=== PATIENT | female | born 1960 | race Caucasian/White ===

== ENCOUNTER 2016-04-30 13:31 | Inpatient (IN) | payer BC, OTHER ==
[2016-04-30] MEDS ORDERED: SODIUM CHLORIDE 0.9% 1,000 ML IV ONE (14:52)
[2016-04-30] MEDS ORDERED: ASPIRIN 325 MG TAB PO STA (14:53)
[2016-04-30 15:21] LABS: Basophils # (A) 0.1 k/uL (0-0.2); Basophils % (A) 1 %; CH 30.9; CHCM 34.6; Eosinophils # (A) 0.3 k/uL (0-0.7); Eosinophils % (A) 4 %; HCT 41.8 % (34.0-46.0); HDW 2.85; HGB 14.4 gm/dL (11.4-16.0); Luc # (Auto) 0.16; Luc % (Auto) 3; Lymphocytes # (A) 1.5 k/uL (1.0-4.8); Lymphocytes % (A) 23 %; MCHC 34.5 g/dL (31.0-37.0); MCV 89.7 fL (80.0-100.0); Mean Platelet Volume 7.4; Monocytes # (A) 0.3 k/uL (0-1.0); Monocytes % (A) 5 %; Neutrophils # (A) 4.3 k/uL (1.3-7.7); Neutrophils % (A) 65 %; RBC 4.65 m/uL (3.80-5.40); RDW 13.1 % (11.5-15.5); WBC 6.6 k/uL (3.8-10.6); WBC (Perox) 6.63
[2016-04-30 15:30] LABS: Partial Thromboplastin Time 23.5 sec (22.0-30.0); Prothrombin Time 10.4 sec (9.0-12.0)
[2016-04-30 15:31] LABS: Anion Gap 9 mmol/L; Blood Urea Nitrogen 10 mg/dL (7-17); Calcium 9.3 mg/dL (8.4-10.2); Carbon Dioxide 28 mmol/L (22-30); Chloride 106 mmol/L (98-107); Glucose 95 mg/dL (74-99); Non-African American GFR(MDRD) >60 (>60 ml/min/1.73 sqM); Potassium 3.6 mmol/L (3.5-5.1); Sodium 143 mmol/L (137-145)
--- NOTE | 2016-04-30 15:59 | XR ---
EXAMINATION TYPE: XR chest 2V DATE OF EXAM: 04/30/2016 3:48 PM COMPARISON: NONE HISTORY: Leg swelling. TECHNIQUE: Frontal and lateral views of the chest are obtained. FINDINGS: Heart and mediastinum are within normal limits. Lungs are clear. Costophrenic angles are c lear. There are no hilar masses. Bony thorax appears intact. IMPRESSION: No active cardiopulmonary disease.
[2016-04-30] MEDS ORDERED: NALOXONE 0.4 MG/ML 1 ML VIAL IV PRN (16:02)
[2016-04-30] MEDS ORDERED: MORPHINE SULFATE 4 MG/ML SYRINGE IV PRN (16:02)
[2016-04-30] MEDS ORDERED: ACETAMINOPHEN TAB 325 MG TAB PO PRN (16:02)
[2016-04-30] MEDS ORDERED: ONDANSETRON 4 MG/2 ML VIAL IVP PRN (16:02)
--- NOTE | 2016-04-30 16:06 | ED ---
General Adult HPI - General Chief complaint: Skin/Abscess/Foreign Body Stated complaint: Cellulitis Time Seen by Provider: 04/30/16 14:31 Source: patient Mode of arrival: ambulatory Limitations: no limitations - History of Present Illness Initial comments: 56-year-old female presented for evaluation of failed outpatient treatment of cellulitis of her left lower extremity. She states that she has gone through 2 courses of antibiotics the first with cefuroxime and the second with clindamycin. She states the cellulitis has been continuing to spread towards her knees slowly overnight the swelling and erythema rapidly spread beyond her knee and went chcf up her thigh. She called her primary care physician who has been treating her for the cellulitis and he stated that she needed to come to the hospital for admission and IV antibiotics. She denies any lower extremity numbness, tingling, paresthesias, discoloration with the exception of the cellulitis areas. She further denies any fevers, chills, nausea, vomiting, shortness breath, chest pain. - Related Data Home Medications Medication Instructions Recorded Confirmed Cetirizine HCl [Zyrtec] 10 mg PO DAILY 04/30/16 04/30/16 Clindamycin HCl [Cleocin] 300 mg PO Q6HR 04/30/16 04/30/16 Furosemide [Lasix] 20 mg PO DAILY 04/30/16 04/30/16 Naproxen Sodium [Aleve] 220 mg PO Q12HR 04/30/16 04/30/16 Pantoprazole [Protonix] 40 mg PO DAILY 04/30/16 04/30/16 Simvastatin [Zocor] 20 mg PO DAILY 04/30/16 04/30/16 Terbinafine [LamISIL] 250 mg PO DAILY 04/30/16 04/30/16 Allergies Allergy/AdvReac Type Severity Reaction Status Date / Time Iodinated Contrast Media - Allergy Dyspnea Verified 04/30/16 14:59 Oral and [Iodinated Contrast Media - IV Dye] Review of Systems ROS Statement: Those systems with pertinent positive or pertinent negative responses have been documented in the HPI. ROS Other: All systems not noted in ROS Statement are negative. Constitutional: Denies: fever, chills Eyes: Denies: eye pain, eye discharge ENT: Denies: ear pain, throat pain Respiratory: Denies: cough, dyspnea, wheezes Cardiovascular: Denies: chest pain, palpitations, dyspnea on exertion, orthopnea Endocrine: Denies: fatigue, polydipsia, polyuria Gastrointestinal: Denies: abdominal pain, nausea, vomiting Genitourinary: Denies: urgency, dysuria Musculoskeletal: Denies: back pain, myalgia Skin: Reports: lesions, other (Cellulitis of left lower extremity extending from the lower mid calf up to the mid thigh along the medial aspect of her leg.) Neurological: Denies: headache, weakness Psychiatric: Denies: anxiety, depression Past Medical History Past Medical History: GERD/Reflux Additional Past Medical History / Comment(s): edema History of Any Multi-Drug Resistant Organisms: None Reported Past Surgical History: Hysterectomy Past Psychological History: No Psychological Hx Reported Smoking Status: Former smoker Past Alcohol Use History: None Reported Past Drug Use History: None Reported - Past Family History Father Family Medical History: No Reported History Mother Family Medical History: Cancer General Exam Limitations: no limitations General appearance: alert, in no apparent distress Head exam: Present: atraumatic, normocephalic, normal inspection Eye exam: Present: normal appearance, PERRL, EOMI. Absent: scleral icterus, conjunctival injection, periorbital swelling ENT exam: Present: normal exam, mucous membranes moist Neck exam: Present: normal inspection. Absent: tenderness, meningismus, lymphadenopathy Respiratory exam: Present: normal lung sounds bilaterally. Absent: respiratory distress, wheezes, rales, rhonchi, stridor Cardiovascular Exam: Present: regular rate, normal rhythm, normal heart sounds. Absent: systolic murmur, diastolic murmur, rubs, gallop, clicks GI/Abdominal exam: Present: soft, normal bowel sounds. Absent: distended, tenderness, guarding, rebound, rigid Rectal exam: Present: deferred Extremities exam: Present: normal inspection, full ROM, normal capillary refill. Absent: tenderness, pedal edema, joint swelling, calf tenderness Back exam: Present: normal inspection Neurological exam: Present: alert, oriented X3, CN II-XII intact Psychiatric exam: Present: normal affect, normal mood Skin exam: Present: warm, dry, intact, erythema (Cellulitis to the left lower extremity extending from the lower half of her calf up the medial aspect of her leg to mid thigh. There are multiple areas of induration and it is warm to palpation.). Absent: normal color, rash Course Vital Signs 04/30/16 04/30/16 13:47 16:08 Temperature 98.8 F 99.4 F Pulse Rate 100 86 Respiratory 20 16 Rate Blood Pressure 142/66 134/74 O2 Sat by Pulse 98 94 L Oximetry EKG Findings - EKG Comments: EKG Findings:: Normal sinus rhythm with a ventricular rate of 92, SHAYLA 152, QRS 80, QT/QTc is 378/467. Medical Decision Making - Medical Decision Making 56-year-old female presenting for evaluation of saddle treatment of lower extremity cellulitis. She's been treated with 2 antibiotics prior to coming to the ED. She called her primary care physician today and he recommended she come for further evaluation, admission, and IV antibiotics. On physical examination she does have erythema, induration, and warmth to palpation along the medial aspect of her leg and wraps around anterior and posterior extending from the distal calf all the way to the mid thigh. She states that the majority of this extension happened overnight despite being on antibiotic therapy. Although this is likely failed outpatient treatment of cellulitis concern for DVT remains on the differential. We'll obtain labs, lower extremity duplex, and provide IV fluids and vancomycin anabiotic therapy. Labs revealed no significant abnormalities.Ultrasound venous Doppler duplex of the left lower extremity: No evidence of DVT. There is evidence of some thrombus in the small saphenous vein and superficial other veins. The patient was reevaluated and was resting currently in her bed. She was informed of these results and through shared decision-making it was decided that she would be admitted for further evaluation and treatment. The primary team was contacted and informed of admission and agreed with request for consult with infectious disease. Admission order placed in bed request submitted. - Lab Data Result diagrams: 04/30/16 15:05 04/30/16 15:05 Lab Results 04/30/16 04/30/16 04/30/16 Range/Units 15:05 15:05 15:05 WBC 6.6 (3.8-10.6) k/uL RBC 4.65 (3.80-5.40) m/uL Hgb 14.4 (11.4-16.0) gm/dL Hct 41.8 (34.0-46.0) % MCV 89.7 (80.0-100.0) fL MCH 31.0 (25.0-35.0) pg MCHC 34.5 (31.0-37.0) g/dL RDW 13.1 (11.5-15.5) % Plt Count 289 (150-450) k/uL Neutrophils % 65 % Lymphocytes % 23 % Monocytes % 5 % Eosinophils % 4 % Basophils % 1 % Neutrophils # 4.3 (1.3-7.7) k/uL Lymphocytes # 1.5 (1.0-4.8) k/uL Monocytes # 0.3 (0-1.0) k/uL Eosinophils # 0.3 (0-0.7) k/uL Basophils # 0.1 (0-0.2) k/uL PT 10.4 (9.0-12.0) sec INR 1.0 (<1.1) APTT 23.5 (22.0-30.0) sec Sodium 143 (137-145) mmol/L Potassium 3.6 (3.5-5.1) mmol/L Chloride 106 (98-107) mmol/L Carbon Dioxide 28 (22-30) mmol/L Anion Gap 9 mmol/L BUN 10 (7-17) mg/dL Creatinine 0.60 (0.52-1.04) mg/dL Est GFR (MDRD) Af Amer >60 (>60 ml/min/1.73 sqM) Est GFR (MDRD) Non-Af >60 (>60 ml/min/1.73 sqM) Glucose 95 (74-99) mg/dL Calcium 9.3 (8.4-10.2) mg/dL Troponin I (0.000-0.034) ng/mL 04/30/16 Range/Units 15:05 WBC (3.8-10.6) k/uL RBC (3.80-5.40) m/uL Hgb (11.4-16.0) gm/dL Hct (34.0-46.0) % MCV (80.0-100.0) fL MCH (25.0-35.0) pg MCHC (31.0-37.0) g/dL RDW (11.5-15.5) % Plt Count (150-450) k/uL Neutrophils % % Lymphocytes % % Monocytes % % Eosinophils % % Basophils % % Neutrophils # (1.3-7.7) k/uL Lymphocytes # (1.0-4.8) k/uL Monocytes # (0-1.0) k/uL Eosinophils # (0-0.7) k/uL Basophils # (0-0.2) k/uL PT (9.0-12.0) sec INR (<1.1) APTT (22.0-30.0) sec Sodium (137-145) mmol/L Potassium (3.5-5.1) mmol/L Chloride (98-107) mmol/L Carbon Dioxide (22-30) mmol/L Anion Gap mmol/L BUN (7-17) mg/dL Creatinine (0.52-1.04) mg/dL Est GFR (MDRD) Af Amer (>60 ml/min/1.73 sqM) Est GFR (MDRD) Non-Af (>60 ml/min/1.73 sqM) Glucose (74-99) mg/dL Calcium (8.4-10.2) mg/dL Troponin I <0.012 (0.000-0.034) ng/mL Disposition Clinical Impression: Cellulitis and abscess of leg Disposition: ADMITTED IP TO THIS [facility] Decision to Admit Reason: Admit from EC Decision Date: 04/30/16 Decision Time: 16:06
[2016-04-30] MEDS ORDERED: IV VANCOMYCIN PER PHARMACY 1 EACH MISC MISCELLANE PRN (16:29)
[2016-04-30] MEDS ORDERED: VANCOMYCIN 1,750 MG in SODIUM CHLORIDE 0.9% 250 ML IVPB ONE (16:45)
[2016-04-30 16:58] LABS: Appearance,Urine Clear (Clear); Bilirubin,Urine Negative (Negative); Glucose,Urine (UA) Negative (Negative); Ketones,Urine Negative (Negative); Leukocyte Esterase,Urine Negative (Negative); Mucus,Urine Rare /hpf; Nitrite,Urine Negative (Negative); Particle Count 772; Protein,Urine Negative (Negative); RBC,Urine 1 /hpf (0-5); Specific Gravity,Urine 1.006 (1.001-1.035); Squamous Epithelial Cell,Urine 1 /hpf (0-4); UA Billing (MACRO vs. MICRO) MICRO; Urobilinogen,Urine <2.0 mg/dL (<2.0); WBC,Urine <1 /hpf (0-5)
--- NOTE | 2016-04-30 17:07 | US ---
EXAMINATION TYPE: US venous doppler duplex LE LT DATE OF EXAM: 04/30/2016 4:33 PM COMPARISON: No previous CLINICAL HISTORY: Pain. Cellulitis SIDE PERFORMED: Left VESSELS IMAGED: External Iliac Vein (EIV) Common Femoral Vein Deep Femoral Vein Greater Saphenous Vein * Femoral Vein Popliteal Vein Small Saphenous Vein * Proximal Calf Veins (* superficial vessels) Left Leg: Appears negative for DVT (unable to do compression images at mid and distal femoral vein a nd popliteal vein, transducer pressure at those areas was too painful for patient), thrombus seen wit hin small saphenous vein, scanned left calf area of pain: thrombus seen within superficial vessel IMPRESSION: No evidence of deep venous thrombosis. There is evidence of some thrombus in the sapheno us vein and superficial other veins.
[2016-04-30] MEDS: SODIUM CHLORIDE 0.9% 1,000 ML IV SCH (17:53)
[2016-04-30 18:00] VITALS: BMI 38.7
[2016-04-30] MEDS: KETOROLAC 30 MG/ML 1 ML VIAL IVP PRN (20:12)
[2016-05-01] MEDS: HEPARIN SODIUM,PORCINE 5,000 UNIT/ML 1 ML VIAL SQ SCH ×4 (00:24→23:35)
[2016-05-01] MEDS: KETOROLAC 30 MG/ML 1 ML VIAL IVP PRN ×3 (02:07→15:08)
[2016-05-01] MEDS ORDERED: VANCOMYCIN 1,750 MG in SODIUM CHLORIDE 0.9% 250 ML IVPB SCH (06:00)
[2016-05-01] MEDS: ATORVASTATIN 10 MG TAB PO SCH (07:49)
[2016-05-01] MEDS: PANTOPRAZOLE 40 MG TABLET PO SCH (07:49)
[2016-05-01] MEDS: TERBINAFINE 250 MG TAB PO SCH (07:49)
[2016-05-01] MEDS: FUROSEMIDE 20 MG TAB PO SCH (07:50)
[2016-05-01 07:57] LABS: Basophils # (A) 0.1 k/uL (0-0.2); Basophils % (A) 1 %; CH 30.4; CHCM 33.7; Eosinophils # (A) 0.2 k/uL (0-0.7); Eosinophils % (A) 5 %; HCT 39.1 % (34.0-46.0); HDW 2.92; Luc # (Auto) 0.12; Luc % (Auto) 3; Lymphocytes # (A) 1.3 k/uL (1.0-4.8); Lymphocytes % (A) 28 %; MCH 30.2 pg (25.0-35.0); MCHC 33.3 g/dL (31.0-37.0); MCV 90.7 fL (80.0-100.0); Mean Platelet Volume 7.1; Monocytes # (A) 0.3 k/uL (0-1.0); Monocytes % (A) 6 %; Neutrophils # (A) 2.6 k/uL (1.3-7.7); Neutrophils % (A) 58 %; RBC 4.32 m/uL (3.80-5.40); RDW 13.3 % (11.5-15.5); WBC 4.5 k/uL (3.8-10.6); WBC (Perox) 4.89
[2016-05-01 08:02] LABS: Anion Gap 9 mmol/L; Blood Urea Nitrogen 10 mg/dL (7-17); Calcium 8.9 mg/dL (8.4-10.2); Carbon Dioxide 22 mmol/L (22-30); Chloride 110 mmol/L (98-107); Glucose 96 mg/dL (74-99); Non-African American GFR(MDRD) >60 (>60 ml/min/1.73 sqM); Potassium 4.1 mmol/L (3.5-5.1); Sodium 141 mmol/L (137-145)
--- NOTE | 2016-05-01 08:04 | P.HPIM ---
History of Present Illness H&P Date: 05/01/16 Chief Complaint: LLE cellulitis This is a history and physical on a 56-year-old white female who has essentially failed outpatient treatment for left lower stomach cellulitis. She was given cellulitis treatment of Levaquin and Rocephin and then [facility] practitioner who switched antibiotics and still the patient did not improve. She was taking Aleve every 12 hours when necessary for fever. However, she states that the leg still became red and because of her lack of mobility it started swelling at work. DVT has been ruled out by lower extremity Doppler. But she has significant saphenous thrombophlebitis. Otherwise, she has an underlying history of hypertension which is stable. Review of Systems Constitutional: Reports chills, Reports fever Eyes: denies blurred vision, denies pain Ears, nose, mouth and throat: Denies headache, Denies sore throat Cardiovascular: Denies chest pain, Denies shortness of breath Respiratory: Denies cough Genitourinary: Denies dysuria, Denies hematuria Integumentary: Reports rash Neurological: Denies numbness, Denies weakness Psychiatric: Denies anxiety, Denies depression Endocrine: Denies fatigue, Denies weight change Past Medical History Past Medical History: GERD/Reflux Additional Past Medical History / Comment(s): edema History of Any Multi-Drug Resistant Organisms: None Reported Past Surgical History: Hysterectomy Past Psychological History: No Psychological Hx Reported Smoking Status: Former smoker Past Alcohol Use History: None Reported Past Drug Use History: None Reported - Past Family History Father Family Medical History: No Reported History Mother Family Medical History: Cancer Medications and Allergies Home Medications Medication Instructions Recorded Confirmed Type Cetirizine HCl [Zyrtec] 10 mg PO DAILY 04/30/16 04/30/16 History Clindamycin HCl [Cleocin] 300 mg PO Q6HR 04/30/16 04/30/16 History Furosemide [Lasix] 20 mg PO DAILY 04/30/16 04/30/16 History Naproxen Sodium [Aleve] 220 mg PO Q12HR 04/30/16 04/30/16 History Pantoprazole [Protonix] 40 mg PO DAILY 04/30/16 04/30/16 History Simvastatin [Zocor] 20 mg PO DAILY 04/30/16 04/30/16 History Terbinafine [LamISIL] 250 mg PO DAILY 04/30/16 04/30/16 History Allergies Allergy/AdvReac Type Severity Reaction Status Date / Time Iodinated Contrast Media - Allergy Dyspnea Verified 04/30/16 14:59 Oral and [Iodinated Contrast Media - IV Dye] Physical Exam Vitals: Vital Signs Temp Pulse Pulse Pulse Resp BP BP 05/01/16 01:30 97.4 F L 84 16 105/60 04/30/16 20:00 98.2 F 94 16 116/58 04/30/16 16:08 99.4 F 86 16 134/74 Pulse Ox 05/01/16 01:30 95 04/30/16 20:00 92 L 04/30/16 16:08 94 L Intake and Output 04/30/16 05/01/16 05/01/16 22:59 06:59 14:59 Intake Total 261 150 Balance 261 150 Intake: Oral 261 150 Other: Voiding Method Toilet # Voids 1 2 Weight 108.862 kg - Constitutional General appearance: obese - EENT Eyes: EOMI - Neck Neck: no lymphadenopathy - Respiratory Respiratory: bilateral: CTA - Cardiovascular Rhythm: regular Heart sounds: normal: S1, S2 - Gastrointestinal General gastrointestinal: soft, no tenderness - Integumentary Integumentary: cellulitis - Neurologic Neurologic: CNII-XII intact - Psychiatric Psychiatric: A&O x's 3 Results CBC & Chem 7: 04/30/16 15:05 04/30/16 15:05 Labs: Abnormal Lab Results - Last 24 Hours (Table) 04/30/16 Range/Units 16:43 Urine Blood Trace H (Negative) Urine Mucus Rare H (None) /hpf Thrombosis Risk Factor Assmnt - Choose All That Apply Each Factor Represents 1 point: Age 41-60 years Thrombosis Risk Factor Assessment Total Risk Factor Score: 1 Thrombosis Risk Factor Assessment Level: Low Risk Assessment and Plan (1) Cellulitis and abscess of leg Status: Acute Plan: We'll go ahead and continue vancomycin. The patient will be on bedrest. Question need for Silvadene cream. Check CBC and BMP in a.m. Anticipate discharge in next 48 hours. I would like to see about 72 hours of vancomycin and then switch back to oral medication. Reconcile home medications. Otherwise, discussed with patient's is full code. Time with Patient: Less than 30
--- NOTE | 2016-05-01 10:35 | HP ---
DATE OF ADMISSION: 04/30/2016. CHIEF COMPLAINT: Left leg cellulitis, worsening. HISTORY OF PRESENT ILLNESS: Ms. Frias is a 56-year-old woman with a known history of hypertension, hyperlipidemia, GERD, and toenail fungal infection, who follows with Dr. Maria. Came to the hospital with worsening leg cellulitis of the left leg. Apparently the patient had cellulitis starting in the ankle region, went up to the knee. The patient went to Dr. Maria's office and was initially started on antibiotics and has been changed to clindamycin yesterday. The patient took the medication but the swelling and redness did not get any better and was extending up to the thigh area now. The patient presented to the hospital for further evaluation. The patient has been taking clindamycin. The patient otherwise denied any subjective fevers. The patient did have chills at home. No chest pain or shortness of breath. No leg weakness. No numbness or tingling. No blisters noted. REVIEW OF SYSTEMS: CONSTITUTIONAL: No fever. No chills. Patient does have subjective fevers and chills at home. No weakness. ABDOMEN: No nausea, vomiting or abdominal pain. CARDIOVASCULAR: No chest pain or shortness of breath. RESPIRATORY: No cough or sputum production. No shortness of breath. GENITOURINARY: Negative. SKIN: Negative except as above. All other fourteen-point review of systems negative except as above. PAST MEDICAL HISTORY: GERD, hypertension, hyperlipidemia, toenail fungal infection. PAST SURGICAL HISTORY: Hysterectomy. SOCIAL HISTORY: The patient is a former smoker, quit smoking several years ago. Denied any alcohol use, denied any drugs or IVDU. Allergies include IODINATED CONTRAST MEDIA and DYE. HOME MEDICATIONS: 1. Cetirizine. 2. Clindamycin. 3. Lasix. 4. Naprosyn. 5. Protonix. 6. Simvastatin. 7. Acetaminophen. FAMILY HISTORY: Denied any history of hypertension, diabetes mellitus or premature heart disease in the family. PHYSICAL EXAMINATION: GENERAL: A 56-year-old female, lying in bed comfortably, awake, alert, oriented x3. The patient is in no apparent distress. VITALS: Blood pressure is 148/66, pulse 100, respirations 20, temperature afebrile, pulse ox is 98% on room air. HEENT: Atraumatic, normocephalic. NECK: Supple. No JVD. CVS: S1, S2 heard. No murmurs, no gallop. LUNGS: Bilateral air entry is present. No wheezing, no gallops. ABDOMEN: Soft, nontender, bowel sounds present. OVEN TECHNICIAN: Awake, alert, oriented x3. EXTREMITIES: Left lower extremity redness extending up to the thigh area from knee with indurated area on the medial aspect. Tender to palpation. The patient's has an ulcer on the leg, also warm as well. Pulses palpable bilaterally. No clubbing or cyanosis. PSYCHIATRIC: Cooperative. LABORATORY DATA: WBC 6.6, hemoglobin 14.4, platelets 289, INR 1.0, sodium 143, potassium 3.6, ( ), bicarbonate 28, BUN 10, creatinine 0.6. Troponin less than 0.012. UA negative. Chest x-ray, no acute pulmonary process. Venous duplex, no evidence of DVT. There is evidence of thrombus in the saphenous vein and superficial other veins. IMPRESSION: 1. Left lower extremity cellulitis, failed outpatient therapy. 2. Left lower extremity superficial vein thrombus. No deep venous thrombosis noted on the ultrasound. 3. History of leg swelling, patient is on Lasix for that. 4. Hyperlipidemia. 5. Fungal toenail infection, currently on clindamycin. 6. Gastroesophageal reflux disease. 7. Morbid obesity with body mass index of 38.7. 8. Deep venous thrombosis prophylaxis with heparin subcu. DISCUSSION AND PLAN: Hospital is admitted to the hospital with cellulitis, failed outpatient therapy. We will start the patient on vancomycin. Duplex ultrasound showed no deep venous thrombosis. We will continue the warm compresses. Continue the pain management. Continue home medications. Further recommendations based on clinical course.
[2016-05-01] MEDS: ceFAZolin 2 GM in SODIUM CHLORIDE 0.9% 100 ML IVPB SCH ×2 (15:08→23:34)
[2016-05-01] MEDS: SODIUM CHLORIDE 0.9% 1,000 ML IV SCH (15:16)
--- NOTE | 2016-05-01 17:02 | CONS ---
DATE OF CONSULTATION: 05/01/2016 REASON FOR CONSULTATION: Left lower extremity cellulitis. HISTORY OF PRESENT ILLNESS: The patient is a 56-year-old female presenting to the ER at [facility] with chief complaints of left leg pain, swelling and redness that apparently have been going on since April 13. She did have some swelling and redness about the ankle area that has progressively increased up to the upper leg and to the posterior knee in the popliteal fossa area. Patient has been treated as an outpatient with oral antibiotic therapy in form of clindamycin, without any significant improvement, especially with the pain. Pain is currently throbbing, 5 to 6 out of 10, and no radiation. There is no skin breakdown. There is no drainage. She did have some chills but denies any high-grade fever. With these symptoms patient did present to the ER. Patient was evaluated by the ER physician. She did have a lower extremity Doppler that was positive for some superficial vein thrombosis but no DVT. She was started on vancomycin, Pharmacy to dose, and I was asked to see the patient for further recommendations regarding antibiotic therapy. At the time of my evaluation, I was unable to appreciate any significant redness, though there was some swelling. REVIEW OF SYSTEMS: CONSTITUTIONAL: Positive for weakness and chills. EYES: No complaint. ENT: No complaint. RESPIRATORY: No complaint. CARDIOVASCULAR: No complaint. GENITOURINARY: No complaint. GASTROINTESTINAL: No complaint. MUSCULOSKELETAL: No complaint. INTEGUMENTARY: As per HPI. PSYCHOLOGICAL: No complaint. ENDOCRINE: No complaint. NEUROLOGIC: No complaint. PAST MEDICAL HISTORY: 1. Hypertension. 2. Hyperlipidemia. 3. Onychomycosis. 4. Gastroesophageal reflux disease. PAST SURGICAL HISTORY: Hysterectomy. SOCIAL HISTORY: Patient quit smoking a few years ago. Denies any drinking or any drug use. FAMILY HISTORY: No pertinent findings were noticed. ALLERGIES: IODINATED CONTRAST DYE. Medications currently include: 1. Tylenol. 2. Lipitor. 3. Vancomycin, Pharmacy to dose. 4. Lasix. 5. Heparin. 6. Motrin. 7. Toradol. 8. Narcan. 9. Zofran. 10. Protonix. 11. Lamictal. On examination, blood pressure is 148/63 with a pulse of 76, temperature 98.6. She is 95% on room air. General description is a middle-aged female up in the room in no distress. No tachypnea or accessory muscle of respiration use. HEENT examination shows no pallor or scleral icterus. Oral mucous membranes dry. NECK: Trachea is central. There is no thyromegaly. LUNGS: Unlabored breathing. Clear to auscultation anteriorly. No wheeze or crackle. HEART: S1, S2. Regular rate and rhythm. ABDOMEN: Soft. No tenderness. LEFT LEG: Some swelling and varicose veins noticed, slight swelling but no significant warmth was noticed or any fluctuation or induration. NEUROLOGICAL: The patient is awake, alert, oriented x3. Mood and affect normal. LABS: Hemoglobin is 13 with a white count of 4.5. BUN of 10, creatinine 0.52. Urine has been negative. DIAGNOSTIC IMPRESSION AND PLAN: Patient with left leg swelling and pain, more likely secondary to superficial thrombophlebitis. Clinical suspicion remains to be low for underlying secondary bacterial cellulitis, as the patient is not running any fever and did not have an elevated white count. Would recommend concentration and treatment more on the superficial thrombophlebitis rather than bacterial infection. Clinical suspicion is low for an MRSA infection. PLAN: 1. Discontinue the vancomycin. 2. Will advise a non-steroid anti-inflammatory medication and possible cold compresses to the area. 3. Will give her a short course of cefazolin. 4. Will follow up on the clinical condition to further adjust medication if needed. Thank you for this consultation. Will follow this patient along with you. WILIAM
[2016-05-01] MEDS: IBUPROFEN 400 MG TAB PO PRN (22:03)
[2016-05-02] MEDS ORDERED: VANCOMYCIN TROUGH DUE 1 EACH MISC MISCELLANE ONE (05:00)
[2016-05-02] MEDS: IBUPROFEN 400 MG TAB PO PRN ×3 (05:31→20:28)
[2016-05-02 05:40] LABS: CH 30.7; CHCM 34.3; HCT 40.5 % (34.0-46.0); HDW 2.82; HGB 13.7 gm/dL (11.4-16.0); MCH 30.5 pg (25.0-35.0); MCHC 33.9 g/dL (31.0-37.0); MCV 89.8 fL (80.0-100.0); Mean Platelet Volume 6.9; RBC 4.51 m/uL (3.80-5.40); RDW 13.2 % (11.5-15.5); WBC 4.9 k/uL (3.8-10.6)
[2016-05-02 05:52] LABS: ALT 34 U/L (9-52); AST 22 U/L (14-36); Alkaline Phosphatase 89 U/L (38-126); Anion Gap 3 mmol/L; Blood Urea Nitrogen 10 mg/dL (7-17); Calcium 9.1 mg/dL (8.4-10.2); Carbon Dioxide 28 mmol/L (22-30); Chloride 108 mmol/L (98-107); Glucose 92 mg/dL (74-99); Non-African American GFR(MDRD) >60 (>60 ml/min/1.73 sqM); Potassium 4.1 mmol/L (3.5-5.1); Sodium 139 mmol/L (137-145); Total Bilirubin 0.3 mg/dL (0.2-1.3); Total Protein 6.1 g/dL (6.3-8.2)
[2016-05-02] MEDS: PANTOPRAZOLE 40 MG TABLET PO SCH (09:12)
[2016-05-02] MEDS: HEPARIN SODIUM,PORCINE 5,000 UNIT/ML 1 ML VIAL SQ SCH ×2 (09:12→15:27)
[2016-05-02] MEDS: FUROSEMIDE 20 MG TAB PO SCH (09:12)
[2016-05-02] MEDS: TERBINAFINE 250 MG TAB PO SCH (09:12)
[2016-05-02] MEDS: ceFAZolin 2 GM in SODIUM CHLORIDE 0.9% 100 ML IVPB SCH ×2 (09:13→15:27)
[2016-05-02] MEDS: ATORVASTATIN 10 MG TAB PO SCH (09:14)
[2016-05-02] MEDS: SODIUM CHLORIDE 0.9% 1,000 ML IV SCH (16:12)
--- NOTE | 2016-05-02 20:17 | P.PN ---
Subjective Principal diagnosis: Lower extremity cellulitis. This is a continue progress on a 56-year-old white female essentially admitted for cellulitis. She isn't placed on vancomycin. Infectious disease has been counseled. She states significant clinical improvement. No significant fever spikes are noted. I appreciate infectious disease input. Objective - Vital Signs Vital signs: Vital Signs Temp 96.0 F L 05/02/16 14:49 Pulse 85 05/02/16 14:49 Resp 17 05/02/16 14:49 BP 123/82 05/02/16 14:49 Pulse Ox 96 05/02/16 14:49 Intake & Output 05/02/16 05/02/16 05/03/16 06:59 18:59 06:59 Intake Total 180 2000 Balance 180 1999 Intake: IV 180 100 Sodium Chloride 0.9% 1, 180 100 000 ml @ 20 mls/hr IV . Q24H NITHIN Rx#:[id number] Intake, IV Titration 100 Amount ceFAZolin 2 gm In Sodium 100 Chloride 0.9% 100 ml @ 100 mls/hr IVPB Q8HR NTIHIN Rx#:[id number] Oral 1800 Other: Voiding Method Toilet Toilet # Voids 2 2 - Constitutional General appearance: Present: obese - EENT Eyes: Absent: abnormal pupil - Respiratory Respiratory: bilateral: CTA - Cardiovascular Heart sounds: normal: S1, S2 - Gastrointestinal General gastrointestinal: Absent: tenderness - Neurologic Neurologic: Present: CNII-XII intact - Labs CBC & Chem 7: 05/02/16 05:24 05/02/16 05:24 Labs: Abnormal Lab Results - Last 24 Hours (Table) 05/02/16 Range/Units 05:24 Chloride 108 H (98-107) mmol/L Total Protein 6.1 L (6.3-8.2) g/dL Assessment and Plan (1) Cellulitis and abscess of leg Status: Acute Plan: Continue current treatment. Check CBC in a.m. Anticipate discharge in the next 24-48 hours. Time with Patient: Greater than 30
--- NOTE | 2016-05-02 22:48 | PN ---
DATE OF SERVICE: 05/02/2016 Reason for Follow-up is left lower extremity cellulitis. INTERVAL HISTORY: The patient for afebrile. She is complaining of some pain on the popliteal fossa and the left medial leg area, there is some swelling but no redness. the patient does have evidence of varicose veins in both leg. Denies any chest pain, shortness of breath, cough. No abdominal pain. No diarrhea. On examination, blood pressure 123/82 with a pulse of 85. Temperature 96, she is 96% on room air. HEENT: The patient is a middle-age female up in the room in no distress. RESPIRATORY SYSTEM: Unlabored breathing. Clear to auscultation anteriorly. HEART: S1, S2. Regular rate and rhythm. Abdomen soft, no tenderness. Left leg is more likely thrombophlebitis and no definite redness was noticed. DIAGNOSTIC IMPRESSION AND PLAN: Patient with left leg pain and swelling, more likely related to underlying superficial thrombophlebitis. Patient with no redness to the area and no elevated white count. Currently short course of cefazolin that can be switched to Keflex 500 daily for about 5 to 7 days. Continue supportive care. MTDD
[2016-05-03] MEDS: ceFAZolin 2 GM in SODIUM CHLORIDE 0.9% 100 ML IVPB SCH ×2 (00:13→07:25)
[2016-05-03] MEDS: HEPARIN SODIUM,PORCINE 5,000 UNIT/ML 1 ML VIAL SQ SCH ×2 (00:13→07:26)
[2016-05-03] MEDS: IBUPROFEN 400 MG TAB PO PRN ×2 (01:44→07:24)
[2016-05-03 02:04] VITALS: RESP 16
[2016-05-03] MEDS: ATORVASTATIN 10 MG TAB PO SCH (07:26)
[2016-05-03] MEDS: FUROSEMIDE 20 MG TAB PO SCH (07:26)
[2016-05-03] MEDS: PANTOPRAZOLE 40 MG TABLET PO SCH (07:26)
[2016-05-03] MEDS: TERBINAFINE 250 MG TAB PO SCH (07:26)
[2016-05-03 07:39] VITALS: BP 121/55; PULSE 77; TEMP 98.1
--- NOTE | 2016-05-03 11:24 | P.DS ---
Providers Date of admission: 04/30/16 16:02 Attending physician: Vick Maria Primary care physician: Vick Maria - Discharge Diagnosis(es) (1) Cellulitis and abscess of leg Current Visit: Yes Status: Acute (2) Thrombophlebitis Current Visit: Yes Status: Acute Plan - Discharge Summary New Discharge Prescriptions: Cephalexin [Keflex] 500 mg PO Q8HR #21 cap Discharge Medication List Cetirizine HCl [Zyrtec] 10 mg PO DAILY 04/30/16 [History] Furosemide [Lasix] 20 mg PO DAILY 04/30/16 [History] Naproxen Sodium [Aleve] 220 mg PO Q12HR 04/30/16 [History] Pantoprazole [Protonix] 40 mg PO DAILY 04/30/16 [History] Simvastatin [Zocor] 20 mg PO DAILY 04/30/16 [History] Terbinafine [LamISIL] 250 mg PO DAILY 04/30/16 [History] Cephalexin [Keflex] 500 mg PO Q8HR #21 cap 05/03/16 [Rx] Follow up Appointment(s)/Referral(s): Vick Maria MD [Primary Care Provider] - 1-2 days Discharge Disposition: HOME SELF-CARE
== END 2016-05-03 12:08 | disposition home or self-care (01) | DRG 300 ==
LOC: EC 13:31 → 3SUR 16:02 → OBSVTOIN 16:02
PROVIDERS: ADMIT Family Medicine; ATTEND Family Medicine
DX: I82.812 Embolism and thrombosis of superficial veins of left lower extremity (principal); L03.116 Cellulitis of left lower limb; I10 Essential (primary) hypertension; E78.5 Hyperlipidemia, unspecified; K21.9 Gastro-esophageal reflux disease without esophagitis; B35.1 Tinea unguium; Z90.710 Acquired absence of both cervix and uterus; Z87.891 Personal history of nicotine dependence; E66.01 Morbid (severe) obesity due to excess calories; Z68.38 Body mass index [BMI] 38.0-38.9, adult; Z79.1 Long term (current) use of non-steroidal anti-inflammatories (NSAID); Z79.899 Other long term (current) drug therapy
CPT/HCPCS: 36415; 71020; 80048; 80053; 80202; 81001; 84484; 85025; 85027; 85610; 85730; 87040; 93005; 99285

== ENCOUNTER 2019-04-04 13:20 | Emergency (ER) | payer BC ==
[2019-04-04 13:28] VITALS: BP 131/83; PULSE 61; RESP 20; TEMP 98.5
[2019-04-04] MEDS ORDERED: DIPH,PERTUS(ACELL)TETVAC-LF 0.5 ML VIAL IM ONE (13:36)
[2019-04-04] MEDS ORDERED: LIDOCAINE 1% INJ 10MG/ML (20 ML MDV) SQ ONE (14:14)
--- NOTE | 2019-04-04 14:31 | ED ---
Wound/Laceration HPI - General Chief Complaint: Wound/Laceration Stated Complaint: wrist lac Time Seen by Provider: 04/04/19 13:29 Source: patient Mode of arrival: ambulatory Limitations: no limitations - History of Present Illness Initial Comments: 59-year-old male presenting today for chief complaint of left wrist laceration just prior to arrival in the ER. Patient states her broke her glasses was sitting on the counter and she did not see this she states was Georgi sharp shard standing straight up she states she reached for an object and cut her wrist. She states this was not intentional laceration. She denies any suicidal or homicidal ideation. She states that she applied pressure and brought the laceration may need repair with sutures in presents emergency department for evaluation. Patient is unsure of last tetanus. She denies any numbness tingling loss sensation decrease in range of motion or strength of the forearm hand or elbow. Denies any other areas of injury denies any small shards of glass she states it was a large piece that had caught her. In any recent negative upon arrival patient appears well no signs of acute distress. Bleeding controlled - Related Data Home Medications Medication Instructions Recorded Confirmed Cetirizine HCl [Zyrtec] 10 mg PO DAILY 04/30/16 04/30/16 Furosemide [Lasix] 20 mg PO DAILY 04/30/16 04/30/16 Naproxen Sodium [Aleve] 220 mg PO Q12HR 04/30/16 04/30/16 Pantoprazole [Protonix] 40 mg PO DAILY 04/30/16 04/30/16 Simvastatin [Zocor] 20 mg PO DAILY 04/30/16 04/30/16 Terbinafine [LamISIL] 250 mg PO DAILY 04/30/16 04/30/16 Previous Rx's Medication Instructions Recorded Cephalexin [Keflex] 500 mg PO Q8HR #21 cap 05/03/16 Allergies Allergy/AdvReac Type Severity Reaction Status Date / Time Iodinated Contrast Media Allergy Dyspnea Verified 04/04/19 13:27 [Iodinated Contrast Media - IV Dye] Review of Systems ROS Statement: Those systems with pertinent positive or pertinent negative responses have been documented in the HPI. ROS Other: All systems not noted in ROS Statement are negative. Past Medical History Past Medical History: GERD/Reflux Additional Past Medical History / Comment(s): edema History of Any Multi-Drug Resistant Organisms: None Reported Past Surgical History: Hysterectomy Past Psychological History: No Psychological Hx Reported Smoking Status: Former smoker Past Alcohol Use History: None Reported Past Drug Use History: None Reported - Past Family History Father Family Medical History: No Reported History Mother Family Medical History: Cancer General Exam - General Exam Comments Initial Comments: General: The patient is awake and alert, in no distress, and does not appear acutely ill. Eye: +3 mm pupils are equal, round and reactive to light, extra-ocular movements are intact. No nystagmus. There is normal conjunctiva bilaterally. No signs of icterus. Cardiovascular: There is a regular rate and rhythm. No murmur, rub or gallop is appreciated. Respiratory: Lungs are clear to auscultation, respirations are non-labored, breath sounds are equal. No wheezes, stridor, rales, or rhonchi. Gastrointestinal: Soft, non-distended, non-tender abdomen without masses or organomegaly noted. There is no rebound or guarding present. Musculoskeletal: Normal ROM, no tenderness. Strength 5/5. Sensation intact. Radial and ulnar pulses equal bilaterally 2+. Neurological: A&O x 3. CN II-XII intact grossly, There are no obvious motor or sensory deficits. Coordination appears grossly intact. Speech is normal. Skin: Skin is warm and dry and no rashes. 1cm laceration, superficial, slightly irregular of the left ventral wrist more ulnar than radial horizontal orientation. No activbe bleeding, no tendon or FB exposure. Psychiatric: Cooperative, appropriate mood & affect, normal judgment. Limitations: no limitations Course Vital Signs 04/04/19 13:25 Temperature 98.5 F Pulse Rate 61 Respiratory 20 Rate Blood Pressure 131/83 O2 Sat by Pulse 99 Oximetry Procedures - Laceration Laceration #1 Consent Obtained: verbal consent Indication: laceration Site: upper extremity Size (cm): 1 Description: irregular, clean Depth: simple, single layer Anesthetic Used: lidocaine 1% Anesthesia Technique: local infiltration Amount (mls): 1 Pre-repair: wound explored, irrigated extensively, deep structures intact Type of Sutures: nylon Size of Sutures: 4-0 Number of Sutures: 2 Technique: simple, interrupted Patient Tolerated Procedure: well, no complications Additional Comments: Area was cleansed irrigated and closed with edges approximated well. Verbal consent. Medical Decision Making - Medical Decision Making 59-year-old female presenting for left wrist laceration this was not intentional.Laceration repaired patient has no evidence of foreign body. Discussed return parameters for suture removal signs of infection patient verbalized understanding was discharged appearing well after discussing case with Dr. Keene Disposition Clinical Impression: Wrist laceration Disposition: HOME SELF-CARE Condition: Good Instructions (If sedation given, give patient instructions): Care For Your Stitches (ED), Laceration (ED) Additional Instructions: Please use medication as discussed. Please follow-up with family doctor in the next 2 days, return to the emergency department for suture removal in 7 days. Please return to emergency room if the symptoms increase or worsen or for any other concerns. Is patient prescribed a controlled substance at d/c from ED?: No Referrals: Vick Maria MD [Primary Care Provider] - 1-2 days Time of Disposition: 14:31
== END 2019-04-04 14:37 | disposition home or self-care (01) ==
LOC: EC 13:20
DX: S61.512A Laceration without foreign body of left wrist, initial encounter (principal); K21.9 Gastro-esophageal reflux disease without esophagitis; Z79.899 Other long term (current) drug therapy; Z91.041 Radiographic dye allergy status; Z79.891 Long term (current) use of opiate analgesic; Z87.891 Personal history of nicotine dependence; W25.XXXA Contact with sharp glass, initial encounter
CPT/HCPCS: 90715; 99282; 12001; 90471; J2001

== ENCOUNTER 2020-08-23 07:09 | Day surgery (SDC) | payer BC ==
[2020-08-19 13:23] VITALS: BMI 44.1
[~2020-08-23 07:09] MED LIST: ACETAMINOPHEN TAB 500 MG TAB PO PRN; DEXAMETHASONE SOD PHOSPHATE 4 MG/ML 1 ML VIAL IV ONE; HEPARIN SODIUM,PORCINE/PF 5,000 UNIT/0.5 ML SYRINGE SQ PRN; LACTATED RINGERS 1,000 ML IV SCH; LIDOCAINE 1% (10MG/ML) FOR IV START INTRADERMA PRN; MIDAZOLAM 2 MG/2 ML VIAL IV PRN; ONDANSETRON 4 MG/2 ML VIAL IVP ONE; Pre Op ABX Message 1 EACH MISC MISCELLANE ONE
--- NOTE | 2020-08-23 08:35 | P.GSHP ---
History of Present Illness H&P Date: 08/23/20 Chief Complaint: Back lipoma This is a 60-year-old female who presents today for excision of right back lipoma. Patient is developed a 10 cm lipoma of her right mid back. Past Medical History Past Medical History: GERD/Reflux, Hyperlipidemia Additional Past Medical History / Comment(s): lower leg edema History of Any Multi-Drug Resistant Organisms: None Reported Past Surgical History: Hernia Repair, Hysterectomy Additional Past Surgical History / Comment(s): D&C'S Past Anesthesia/Blood Transfusion Reactions: No Reported Reaction Smoking Status: Former smoker - Past Family History Father Family Medical History: No Reported History Mother Family Medical History: Cancer Additional Family Medical History / Comment(s): OVARIAN Medications and Allergies Home Medications Medication Instructions Recorded Confirmed Type Furosemide [Lasix] 20 mg PO DAILY 04/30/16 08/23/20 History Pantoprazole [Protonix] 40 mg PO DAILY 04/30/16 08/23/20 History Simvastatin [Zocor] 20 mg PO DAILY 04/30/16 08/23/20 History Allergies Allergy/AdvReac Type Severity Reaction Status Date / Time Iodinated Contrast Media Allergy Dyspnea Verified 08/19/20 13:18 [Iodinated Contrast Media - IV Dye] Surgical - Exam Vital Signs Temp Pulse Resp BP Pulse Ox 99.0 F 92 18 145/65 93 L 08/23/20 07:43 08/23/20 07:43 08/23/20 07:43 08/23/20 07:43 08/23/20 07:43 - General well developed, well nourished, no distress - Eyes PERRL - ENT normal pinna - Neck no masses - Respiratory normal expansion - Cardiovascular Rhythm: regular - Abdomen Abdomen: soft, non tender Assessment and Plan Assessment: Back lipoma. We'll perform excision.
[2020-08-23] MEDS ORDERED: LIDOCAINE 1% INJ 10MG/ML (20 ML MDV) ONE (08:51)
[2020-08-23] MEDS ORDERED: fentaNYL (PF) 50 MCG/ML 2 ML AMP ONE (08:51)
[2020-08-23] MEDS ORDERED: PROPOFOL 10 MG/ML 20 ML VIAL IV ONE (08:51)
[2020-08-23] MEDS ORDERED: MIDAZOLAM 2 MG/2 ML VIAL ONE (08:51)
[2020-08-23] MEDS ORDERED: BUPIVACAINE (PF) 0.5% 30 ML VIAL SQ ONE ×2 (09:19→09:28)
[2020-08-23] MEDS ORDERED: SODIUM CHLORIDE 0.9% 50 ML with ceFAZolin 2,000 MG IV ONE ×2 (09:25)
--- NOTE | 2020-08-23 10:03 | P.OP ---
Date of Procedure: 08/23/20 Preoperative Diagnosis: Right back lipoma Postoperative Diagnosis: Right back lipoma Procedure(s) Performed: Excision of right back lipoma Anesthesia: PARAS Surgeon: Timothy Arreguin Pathology: other (Lipoma) Condition: stable (10) Description of Procedure: The patient's placed on the operative table lateral position. She received general endotracheal anesthesia. Her back was prepped and draped in sterile fashion. A skin incision was made over the mass. Using left cautery the subcutaneous tissues were divided. The lipoma was then dissected free. Lipomas approximately 15 x 15 x 5 cm. He was a she will try cautery. A BILL drain is placed in the wound. And brought out through subcutaneous tissues through a stab incision. The drain secured with 2 nylon. The deep layers closed 0 Vicryl. Skin was closed with interrupted 2-0 nylon suture. Patient top she will was sent to recovery in stable condition.
[2020-08-23 10:13] VITALS: TEMP 96.8
[2020-08-23] MEDS: HYDROmorphone 0.5 MG/0.5 ML SYRINGE IVP PRN ×2 (10:18→10:35)
[2020-08-23 10:37] VITALS: RESP 16
[2020-08-23] MEDS ORDERED: SODIUM CHLORIDE 0.9% 1,000 ML IV ONE (11:07)
[2020-08-23 12:36] VITALS: BP 112/57; PULSE 76
== END 2020-08-23 13:18 | disposition home or self-care (01) ==
LOC: OR 07:09
PROVIDERS: ATTEND Surgery
DX: D17.1 Benign lipomatous neoplasm of skin and subcutaneous tissue of trunk (principal); E78.5 Hyperlipidemia, unspecified; K21.9 Gastro-esophageal reflux disease without esophagitis; Z87.891 Personal history of nicotine dependence; Z79.899 Other long term (current) drug therapy; Z91.041 Radiographic dye allergy status; F41.9 Anxiety disorder, unspecified; R60.9 Edema, unspecified
CPT/HCPCS: 88304; 21931; J2250; J1100; J2405; J0690; J2001; J3010; J2704; J1170; J1644

== ENCOUNTER → 2020-11-24 | Outpatient (CLI) | payer BC ==
--- NOTE | 2020-11-25 09:48 | MM ---
Reason for exam: screening (asymptomatic). Last mammogram was performed 12 years and 11 months ago. History: Patient is postmenopausal. Family history of breast cancer in cousin and breast cancer in aunt. Taking estrogen for 1 year. Physical Findings: A clinical breast exam by your physician is recommended on an annual basis and results should be correlated with mammographic findings. MG Screening Mammo w CAD Bilateral CC, MLO, and XCCL view(s) were taken. Prior study comparison: May 05, 2005, bilateral screening mammogram w/CAD. There are scattered fibroglandular densities. There is no discrete abnormality. No significant changes when compared with prior studies. ASSESSMENT: Negative, BI-RAD 1 RECOMMENDATION: Routine screening mammogram of both breasts in 1 year.
== END | disposition home or self-care (01) ==
LOC: RADMAMWWP 09:13
PROVIDERS: ATTEND Family Medicine
DX: Z12.31 Encounter for screening mammogram for malignant neoplasm of breast (principal); Z80.3 Family history of malignant neoplasm of breast
CPT/HCPCS: 77067

== ENCOUNTER 2022-01-17 21:02 | Emergency (ER) | payer BC ==
[2022-01-17 21:13] VITALS: TEMP 97.8
--- NOTE | 2022-01-17 21:34 | ED ---
General Adult HPI - General Chief complaint: Allergic Reaction Stated complaint: Alergic reaction to Covid Meds Time Seen by Provider: 01/17/22 21:14 Source: patient Mode of arrival: ambulatory Limitations: no limitations - History of Present Illness Initial comments: Dictation was produced using [employer] dictation software. please excuse any grammatical, word or spelling errors. Chief Complaint: 62-year-old who presents with shortness of breath and facial numbness History of Present Illness: She is 62-year-old female she was recently diagnosed with COVID-19. She presented to her primary care doctor for 2-3 days of constitutional symptoms. She had a Covid test performed in the office. She's been on Paxlovid for 2 days. Patient states that for the last hour she has had perioral and chin paresthesias. States that affects both sides. Patient also complains of some mild shortness of breath. Patient is vaccinated for COVID-19 and also has had 2 boosters. She does have multiple comorbidities including hypercholesterolemia. Denies any chest pain. No abdominal pain. States that her constitutional symptoms are improved. The ROS documented in this emergency department record has been reviewed and confirmed by me. Those systems with pertinent positive or negative responses have been documented in the HPI. All other systems are other negative and/or noncontributory. PHYSICAL EXAM: General Impression: Alert and oriented x3, not in acute distress HEENT: Normocephalic atraumatic, extra-ocular movements intact, pupils equal and reactive to light bilaterally, mucous membranes moist. Cardiovascular: Heart regular rate and rhythm Chest: Able to complete full sentences, no retractions, no tachypnea Abdomen: abdomen soft, non-tender, non-distended, no organomegaly Musculoskeletal: Pulses present and equal in all extremities, no peripheral edema Motor: no focal deficits noted Neurological: CN II-XII grossly intact, no focal motor or sensory deficits noted Skin: Intact with no visualized rashes Psych: Normal affect and mood ED course: 62-year-old female presents emergency department for perioral paresthesias. She test positive for COVID-19. She believes she is having a side effect from Antiviral Medication to treat Covid. Vital signs upon arrival shows blood pressure 191/82, pulse vital signs within acceptable limits. Nursing notes and chart review was performed laboratory evaluation obtained showing no acute processes. CBC, metabolic panel, abdominal labs are negative. She is positive for kernel virus. Chest x-ray interpreted by me showing acute processes. Patient observed in emergency department for 1 hour 40 minutes. Reevaluated at bedside at 10:45 PM 5 to be stable medical condition. Patient hypoxic and not showing any signs of respiratory distress. Patient is amenable for discharge. Patient has no high- risk features. Patient discharge Case discussed with patient and family member at bedside - Related Data Home Medications Medication Instructions Recorded Confirmed Furosemide [Lasix] 20 mg PO DAILY 04/30/16 08/23/20 Pantoprazole [Protonix] 40 mg PO DAILY 04/30/16 08/23/20 Simvastatin [Zocor] 20 mg PO DAILY 04/30/16 08/23/20 Previous Rx's Medication Instructions Recorded Acetaminophen Tab [Tylenol] 650 mg PO Q6H #30 tab 08/23/20 Docusate [Colace] 100 mg PO BID #20 capsule 08/23/20 Ibuprofen [Motrin] 600 mg PO Q6HR PRN #40 tab 08/23/20 oxyCODONE HCL [OxyIR] 5 mg PO Q6H PRN 3 Days #10 tab 08/23/20 Allergies Allergy/AdvReac Type Severity Reaction Status Date / Time Iodinated Contrast Media Allergy Dyspnea Verified 01/17/22 21:13 [Iodinated Contrast Media - IV Dye] Review of Systems ROS Statement: Those systems with pertinent positive or pertinent negative responses have been documented in the HPI. ROS Other: All systems not noted in ROS Statement are negative. Past Medical History Past Medical History: GERD/Reflux, Hyperlipidemia Additional Past Medical History / Comment(s): lower leg edema History of Any Multi-Drug Resistant Organisms: None Reported Past Surgical History: Hernia Repair, Hysterectomy Additional Past Surgical History / Comment(s): D&C'S Past Anesthesia/Blood Transfusion Reactions: No Reported Reaction Past Psychological History: Anxiety, Panic Disorder Smoking Status: Former smoker Past Alcohol Use History: None Reported Past Drug Use History: None Reported - Past Family History Father Family Medical History: No Reported History Mother Family Medical History: Cancer Additional Family Medical History / Comment(s): OVARIAN General Exam Limitations: no limitations Course Vital Signs 01/17/22 21:10 Temperature 97.8 F Pulse Rate 100 Respiratory 20 Rate Blood Pressure 191/82 O2 Sat by Pulse 96 Oximetry Medical Decision Making - Lab Data Result diagrams: 01/17/22 21:55 01/17/22 21:55 Lab Results 01/17/22 01/17/22 01/17/22 Range/Units 21:55 21:55 21:55 WBC 5.1 (3.8-10.6) k/uL RBC 4.53 (3.80-5.40) m/uL Hgb 11.2 L (11.4-16.0) gm/dL Hct 37.1 (34.0-46.0) % MCV 81.8 (80.0-100.0) fL MCH 24.7 L (25.0-35.0) pg MCHC 30.3 L (31.0-37.0) g/dL RDW 15.3 (11.5-15.5) % Plt Count 211 (150-450) k/uL MPV 7.6 Neutrophils % 71 % Lymphocytes % 17 % Monocytes % 7 % Eosinophils % 2 % Basophils % 1 % Neutrophils # 3.6 (1.3-7.7) k/uL Lymphocytes # 0.9 L (1.0-4.8) k/uL Monocytes # 0.3 (0-1.0) k/uL Eosinophils # 0.1 (0-0.7) k/uL Basophils # 0.0 (0-0.2) k/uL Hypochromasia Marked Sodium 139 (137-145) mmol/L Potassium 4.0 (3.5-5.1) mmol/L Chloride 109 H (98-107) mmol/L Carbon Dioxide 24 (22-30) mmol/L Anion Gap 6 mmol/L BUN 13 (7-17) mg/dL Creatinine 0.54 (0.52-1.04) mg/dL Est GFR (CKD-EPI)AfAm >90 (>60 ml/min/1.73 sqM) Est GFR (CKD-EPI)NonAf >90 (>60 ml/min/1.73 sqM) Glucose 135 H (74-99) mg/dL Calcium 8.7 (8.4-10.2) mg/dL Total Bilirubin 0.5 (0.2-1.3) mg/dL AST 35 (14-36) U/L ALT 26 (4-34) U/L Alkaline Phosphatase 79 (38-126) U/L Troponin I <0.012 (0.000-0.034) ng/mL NT-Pro-B Natriuret Pep pg/mL Total Protein 6.6 (6.3-8.2) g/dL Albumin 3.8 (3.5-5.0) g/dL Coronavirus (PCR) (Not Detectd) 01/17/22 01/17/22 Range/Units 21:55 21:59 WBC (3.8-10.6) k/uL RBC (3.80-5.40) m/uL Hgb (11.4-16.0) gm/dL Hct (34.0-46.0) % MCV (80.0-100.0) fL MCH (25.0-35.0) pg MCHC (31.0-37.0) g/dL RDW (11.5-15.5) % Plt Count (150-450) k/uL MPV Neutrophils % % Lymphocytes % % Monocytes % % Eosinophils % % Basophils % % Neutrophils # (1.3-7.7) k/uL Lymphocytes # (1.0-4.8) k/uL Monocytes # (0-1.0) k/uL Eosinophils # (0-0.7) k/uL Basophils # (0-0.2) k/uL Hypochromasia Sodium (137-145) mmol/L Potassium (3.5-5.1) mmol/L Chloride (98-107) mmol/L Carbon Dioxide (22-30) mmol/L Anion Gap mmol/L BUN (7-17) mg/dL Creatinine (0.52-1.04) mg/dL Est GFR (CKD-EPI)AfAm (>60 ml/min/1.73 sqM) Est GFR (CKD-EPI)NonAf (>60 ml/min/1.73 sqM) Glucose (74-99) mg/dL Calcium (8.4-10.2) mg/dL Total Bilirubin (0.2-1.3) mg/dL AST (14-36) U/L ALT (4-34) U/L Alkaline Phosphatase (38-126) U/L Troponin I (0.000-0.034) ng/mL NT-Pro-B Natriuret Pep 79 pg/mL Total Protein (6.3-8.2) g/dL Albumin (3.5-5.0) g/dL Coronavirus (PCR) Detected A (Not Detectd) Disposition Clinical Impression: Coronavirus infection Disposition: HOME SELF-CARE Condition: Good Instructions (If sedation given, give patient instructions): Coronavirus [place] 2019 (COVID-19) Is patient prescribed a controlled substance at d/c from ED?: No Referrals: Vick Maria MD [Primary Care Provider] - 1-2 days Time of Disposition: 22:51
--- NOTE | 2022-01-17 21:57 | XR ---
EXAMINATION TYPE: XR chest 2V DATE OF EXAM: 01/17/2022 9:47 PM COMPARISON: Chest radiographs from 04/30/2016 TECHNIQUE: XR chest 2V Frontal and lateral views of the chest. CLINICAL INDICATION:Female, 62 years old with history of dyspnea, covid; FINDINGS: Lungs/Pleura: There is no evidence of pleural effusion, focal consolidation, or pneumothorax. Pulmonary vascularity: Unremarkable. Heart/mediastinum: Cardiomediastinal silhouette is unremarkable. Musculoskeletal: No acute osseous pathology. IMPRESSION: No acute cardiopulmonary disease/process.
[2022-01-17 22:10] LABS: Basophils % (A) 1 %; Eosinophils # (A) 0.1 k/uL (0-0.7); Eosinophils % (A) 2 %; HCT 37.1 % (34.0-46.0); HGB 11.2 gm/dL (11.4-16.0); Hypochromasia Marked; Lymphocytes # (A) 0.9 k/uL (1.0-4.8); Lymphocytes % (A) 17 %; MCH 24.7 pg (25.0-35.0); MCHC 30.3 g/dL (31.0-37.0); MCV 81.8 fL (80.0-100.0); Mean Platelet Volume 7.6; Monocytes # (A) 0.3 k/uL (0-1.0); Monocytes % (A) 7 %; Neutrophils # (A) 3.6 k/uL (1.3-7.7); Neutrophils % (A) 71 %; Platelet Count 211 k/uL (150-450); RBC 4.53 m/uL (3.80-5.40); RDW 15.3 % (11.5-15.5); WBC 5.1 k/uL (3.8-10.6)
[2022-01-17 22:24] LABS: ALT 26 U/L (4-34); African American GFR (CKD) >90 (>60 ml/min/1.73 sqM); Albumin 3.8 g/dL (3.5-5.0); Anion Gap 6 mmol/L; Blood Urea Nitrogen 13 mg/dL (7-17); Calcium 8.7 mg/dL (8.4-10.2); Carbon Dioxide 24 mmol/L (22-30); Chloride 109 mmol/L (98-107); Glucose 135 mg/dL (74-99); Non-African American GFR(CKD) >90 (>60 ml/min/1.73 sqM); Sodium 139 mmol/L (137-145); Total Bilirubin 0.5 mg/dL (0.2-1.3); Total Protein 6.6 g/dL (6.3-8.2)
[2022-01-17 22:31] LABS: AST 35 U/L (14-36); Alkaline Phosphatase 79 U/L (38-126)
[2022-01-17 23:02] VITALS: BP 159/74; PULSE 87; RESP 15
== END 2022-01-17 23:11 | disposition home or self-care (01) ==
LOC: EC 21:02
DX: U07.1 COVID-19 (principal); E78.5 Hyperlipidemia, unspecified; K21.9 Gastro-esophageal reflux disease without esophagitis; Z91.041 Radiographic dye allergy status; Z90.710 Acquired absence of both cervix and uterus; Z79.899 Other long term (current) drug therapy; Z87.891 Personal history of nicotine dependence
CPT/HCPCS: 36415; 71046; 80053; 83880; 84484; 85025; 87635; 93005; 99283

== ENCOUNTER 2022-01-24 15:29 | Emergency (ER) | payer BC ==
[2022-01-24] MEDS ORDERED: FAMOTIDINE 20 MG/2 ML VIAL IV STA (16:25)
[2022-01-24] MEDS ORDERED: methylPREDNISolone SOD SUCCI 125 MG/2 ML VIAL IV STA (16:25)
[2022-01-24] MEDS ORDERED: diphenhydrAMINE 50 MG/ML 1 ML VIAL IVP STA (16:25)
[2022-01-24] MEDS ORDERED: PIPERACILLIN-TAZOBACTAM 3.375 GM in SODIUM CHLORIDE 0.9% 100 ML IVPB STA (16:26)
[2022-01-24 17:02] LABS: Basophils % (A) 0 %; Eosinophils % (A) 0 %; HCT 36.6 % (34.0-46.0); HGB 11.5 gm/dL (11.4-16.0); Hypochromasia Moderate; Lymphocytes % (A) 6 %; MCHC 31.5 g/dL (31.0-37.0); MCV 79.2 fL (80.0-100.0); Mean Platelet Volume 8.4; Monocytes # (A) 1.1 k/uL (0-1.0); Monocytes % (A) 6 %; Neutrophils # (A) 14.3 k/uL (1.3-7.7); Neutrophils % (A) 86 %; Platelet Count 289 k/uL (150-450); RBC 4.62 m/uL (3.80-5.40); RDW 15.1 % (11.5-15.5); WBC 16.7 k/uL (3.8-10.6)
[2022-01-24 17:31] LABS: ALT 59 U/L (4-34); African American GFR (CKD) >90 (>60 ml/min/1.73 sqM); Albumin 3.2 g/dL (3.5-5.0); Anion Gap 4 mmol/L; Blood Urea Nitrogen 11 mg/dL (7-17); Calcium 8.9 mg/dL (8.4-10.2); Carbon Dioxide 29 mmol/L (22-30); Chloride 100 mmol/L (98-107); Glucose 117 mg/dL (74-99); Non-African American GFR(CKD) >90 (>60 ml/min/1.73 sqM); Sodium 133 mmol/L (137-145); Total Bilirubin 0.8 mg/dL (0.2-1.3); Total Protein 6.3 g/dL (6.3-8.2)
[2022-01-24 17:34] LABS: AST 51 U/L (14-36); Alkaline Phosphatase 101 U/L (38-126); Potassium 3.7 mmol/L (3.5-5.1)
--- NOTE | 2022-01-24 17:52 | CT ---
EXAMINATION TYPE: CT soft tissue neck wo con, CT facial bones wo con DATE OF EXAM: 01/24/2022 COMPARISON: NONE HISTORY: Poss RT side Dental infection rule out Shaan angina. RT side face swelling. pt states she h ad covid 2weeks ago CT DLP: 1227 mGycm. Automated Exposure Control for Dose Reduction was Utilized. TECHNIQUE: CT scan of the facial bones and thorax are performed without IV contrast. FINDINGS: Curvilinear fluid collection with some foci of air over the right temporal bone is seen without bony destruction. Paranasal sinuses show [id number] mucosal thickening involving ethmoid sinuses and inferior maxillary sinuses. There is asymmetric slight enlargement of the right parotid gland. There are foci of air surrounding the right mandible with marked asymmetric enlargement of the muscles obdulio rounding the right mandible that has surrounding fat stranding. Right submandibular gland slightly mo re prominent with the adjacent inferior abnormal right submandibular lymph node at level of hyoid bon e measuring 3.3 x 2.0 cm. Asymmetric slight thickening of the right latissimus. Asymmetric moderate i ll-defined fluid and fat stranding at this level. The hypopharyngeal airway is deviated to left of midline but remains patent. Visualized upper lungs a re clear. Thyroid gland appears within normal limits. Incidental moderate disc space narrowing C5-C6 level. IMPRESSION: Airway deviated to left of midline but remains patent. Marked inflammatory change in the right face and neck up to level of vocal cords. Curvilinear fluid collection along the right temporal scalp has foci of air suspicious for developing abscess. There is gas producing infection or possibl e developing abscess along the horizontal ramus of the mandible.
--- NOTE | 2022-01-24 18:40 | ED ---
General Adult HPI - General Chief complaint: Skin/Abscess/Foreign Body Stated complaint: infection Time Seen by Provider: 01/24/22 16:02 Source: patient Mode of arrival: ambulatory Limitations: no limitations - History of Present Illness Initial comments: Patient is a 62-year-old female presenting with chief complaint of right-sided facial swelling and tenderness. Patient states this has been ongoing for the last 5 days. Patient states that the pain began in her right ear and that. Swelling has been increasing each day. She admits to yellow foul discharge coming from the gums. Patient is having difficulty opening the mouth. No difficulty breathing or swallowing. No chest pain, palpitations, weakness. states that patient has occasionally had a fever of 101F. Patient states she was given an antibiotic shot yesterday and started taking Augmentin today, has taken 2 doses thus far. Patient states that she was seen by her PCP yesterday who gave her a shot of Rocephin and started her on the Augmentin. - Related Data Home Medications Medication Instructions Recorded Confirmed Furosemide [Lasix] 20 mg PO DAILY 04/30/16 08/23/20 Pantoprazole [Protonix] 40 mg PO DAILY 04/30/16 08/23/20 Simvastatin [Zocor] 20 mg PO DAILY 04/30/16 08/23/20 Previous Rx's Medication Instructions Recorded Acetaminophen Tab [Tylenol] 650 mg PO Q6H #30 tab 08/23/20 Docusate [Colace] 100 mg PO BID #20 capsule 08/23/20 Ibuprofen [Motrin] 600 mg PO Q6HR PRN #40 tab 08/23/20 oxyCODONE HCL [OxyIR] 5 mg PO Q6H PRN 3 Days #10 tab 08/23/20 Allergies Allergy/AdvReac Type Severity Reaction Status Date / Time Iodinated Contrast Media Allergy Dyspnea Verified 01/17/22 21:13 [Iodinated Contrast Media - IV Dye] Sulfa (Sulfonamide Allergy Dyspnea Verified 01/24/22 15:37 Antibiotics) Review of Systems ROS Statement: Those systems with pertinent positive or pertinent negative responses have been documented in the HPI. ROS Other: All systems not noted in ROS Statement are negative. Past Medical History Past Medical History: GERD/Reflux, Hyperlipidemia Additional Past Medical History / Comment(s): lower leg edema History of Any Multi-Drug Resistant Organisms: None Reported Past Surgical History: Hernia Repair, Hysterectomy Additional Past Surgical History / Comment(s): D&C'S Past Anesthesia/Blood Transfusion Reactions: No Reported Reaction Past Psychological History: Anxiety, Panic Disorder Smoking Status: Former smoker Past Alcohol Use History: None Reported Past Drug Use History: None Reported - Past Family History Father Family Medical History: No Reported History Mother Family Medical History: Cancer Additional Family Medical History / Comment(s): OVARIAN General Exam Limitations: no limitations General appearance: alert, in no apparent distress Eye exam: Present: normal appearance Expanded Mouth exam: Present: trismus, tongue normal. Absent: normal external inspection, drooling, muffled voice Teeth exam: Present: dental caries, dental tenderness #, gingival enlargement, other (Yellow discharge seen coming from the right lower gums) Throat exam: other (There does not appear to be any obstruction on visual assessment, however it is somewhat difficult to assess as patient cannot open her mouth very far. She denies any difficulty breathing or swallowing) Neck exam: Present: tenderness (And swelling to the right side) Respiratory exam: Present: normal lung sounds bilaterally. Absent: respiratory distress, wheezes, rales, rhonchi, stridor Cardiovascular Exam: Present: regular rate, normal rhythm, normal heart sounds. Absent: systolic murmur, diastolic murmur, rubs, gallop, clicks Neurological exam: Present: alert, oriented X3, CN II-XII intact Psychiatric exam: Present: normal affect, normal mood Skin exam: Present: warm, dry, intact, normal color. Absent: rash Course Vital Signs 01/24/22 01/24/22 15:32 18:49 Temperature 98 F 100 F H Pulse Rate 75 65 Respiratory 16 18 Rate Blood Pressure 153/99 141/64 O2 Sat by Pulse 95 95 Oximetry Medical Decision Making - Medical Decision Making Patient is a 62-year-old female presenting with chief complaint of swelling and tenderness to the right side of the face. Symptoms have been worsening over the last 5 days. Patient was seen by her PCP yesterday, was given a shot of Rocephin and started on Augmentin, she has taken 2 doses of Augmentin today. On physical examination there is tenderness to palpation and significant swelling noted on the right side of the face and neck. Patient has difficulty opening the mouth. There does not appear to be brawny induration, floor of the mouth is soft on palpation. Zosyn and blood cultures are ordered. WBC 16.7. CT of the neck and facial bones shows marked inflammatory changes in the right face and neck up to the level of the vocal cords. Curvilinear fluid collection along the right temporal scalp has foci of air suspicious for developing abscess. There is gas producing infection or possible developing abscess along the horizontal ramus of the mandible. Airway is deviated to the left of midline but remains patent. At this time there is no ENT coverage at our facility. Patient req uires transfer. Patient is accepted at [facility] by Dr. Bundy. She is agreeable with this plan. I discussed this case with my attending Dr. Treviño. Was pt. sent in by a medical professional or institution? @ Patient sent by Dr. Arreguin Did you speak to anyone other than the patient for history? @ at bedside Did you review nursing and triage notes? @ Nursing note reviewed, agreed Were old charts reviewed? @ Previous visits were reviewed Differential Diagnosis? @ Differential includes dental abscess, Shaan angina, cellulitis, this is not meant to be a comprehensive list EKG interpreted by me (3pts min.)? @ [none] X-rays interpreted by me (1pt min.)? @ [none] CT interpreted by me (1pt min.)? @ No U/S interpreted by me (1pt. min.)? @ [none] What testing was considered but not performed? (CT, X-rays, U/S, labs)? Why? @ CT with contrast was considered, patient states that previous premedication prior to receiving iodine still resulted in difficulty breathing and refused contrast, noncontrast CT was ordered What meds were considered but not given? Why? @ [none] Did you discuss the management of the patient with other professionals? @ My attending Dr. Treviño Did you reconcile home meds? @ no Was smoking cessation discussed for >3mins.? @ no Was critical care preformed (if so, how long)? @ no Were there social determinants of health that impacted care today? How? (Homelessness, low income, unemployed, alcoholism, drug addiction, transportation, low edu. Level, literacy, decrease access to med. care, shelter, rehab)? @ no Was there de-escalation of care discussed even if they declined? (Discuss DNR or withdrawal of care, Hospice)? @ no What co-morbidities impacted this encounter? (DM, HTN, Smoking, COPD, CAD, Cancer, CVA, Hep., AIDS, mental health diagnosis, sleep apnea, morbid obesity)? @ [DM, HTN, Smoking, COPD, CAD, Cancer, CVA, Hep., AIDS, mental health diagnosis, sleep apnea, morbid obesity?] Was patient admitted / discharged? @ Transferred to [facility] Diagnosis/symptom? @ Abscess of the right mandible and temporal scalp Acute, or Chronic, or Acute on Chronic? @ acute Uncomplicated (without systemic symptoms) or Complicated (systemic symptoms)? @ complicated - Lab Data Result diagrams: 01/24/22 16:45 01/24/22 16:45 Lab Results 01/24/22 01/24/22 01/24/22 Range/Units 16:45 16:45 16:45 WBC 16.7 H (3.8-10.6) k/uL RBC 4.62 (3.80-5.40) m/uL Hgb 11.5 (11.4-16.0) gm/dL Hct 36.6 (34.0-46.0) % MCV 79.2 L (80.0-100.0) fL MCH 25.0 (25.0-35.0) pg MCHC 31.5 (31.0-37.0) g/dL RDW 15.1 (11.5-15.5) % Plt Count 289 (150-450) k/uL MPV 8.4 Neutrophils % 86 % Lymphocytes % 6 % Monocytes % 6 % Eosinophils % 0 % Basophils % 0 % Neutrophils # 14.3 H (1.3-7.7) k/uL Lymphocytes # 1.0 (1.0-4.8) k/uL Monocytes # 1.1 H (0-1.0) k/uL Eosinophils # 0.0 (0-0.7) k/uL Basophils # 0.0 (0-0.2) k/uL Hypochromasia Moderate Sodium 133 L (137-145) mmol/L Potassium 3.7 (3.5-5.1) mmol/L Chloride 100 (98-107) mmol/L Carbon Dioxide 29 (22-30) mmol/L Anion Gap 4 mmol/L BUN 11 (7-17) mg/dL Creatinine 0.39 L (0.52-1.04) mg/dL Est GFR (CKD-EPI)AfAm >90 (>60 ml/min/1.73 sqM) Est GFR (CKD-EPI)NonAf >90 (>60 ml/min/1.73 sqM) Glucose 117 H (74-99) mg/dL Plasma Lactic Acid Manan 1.0 (0.7-2.0) mmol/L Calcium 8.9 (8.4-10.2) mg/dL Total Bilirubin 0.8 (0.2-1.3) mg/dL AST 51 H (14-36) U/L ALT 59 H (4-34) U/L Alkaline Phosphatase 101 (38-126) U/L Total Protein 6.3 (6.3-8.2) g/dL Albumin 3.2 L (3.5-5.0) g/dL Disposition Clinical Impression: Abscess of mandible, Abscess of muslim region Disposition: OTHER INSTITUTION NOT DEFINED Condition: Fair Referrals: Vick Maria MD [Primary Care Provider] - 1-2 days Time of Disposition: 18:40 - Out of Hospital Transfer - Req. Specs Out of Hospital Transfer - Requested Specifics: Other Emergency Center ([facility])
[2022-01-24 18:50] VITALS: BP 141/64
[2022-01-24] MEDS ORDERED: ACETAMINOPHEN TAB 325 MG TAB PO STA (18:51)
[2022-01-24 20:38] VITALS: PULSE 74; RESP 16; TEMP 98.3
== END 2022-01-24 21:47 | disposition other institution (70) ==
LOC: EC 15:29
DX: M27.2 Inflammatory conditions of jaws (principal); L02.01 Cutaneous abscess of face; K21.9 Gastro-esophageal reflux disease without esophagitis; E78.5 Hyperlipidemia, unspecified; F41.9 Anxiety disorder, unspecified; Z87.891 Personal history of nicotine dependence; Z88.2 Allergy status to sulfonamides; Z91.041 Radiographic dye allergy status; Z79.899 Other long term (current) drug therapy
CPT/HCPCS: 36415; 80053; 83605; 85025; 87040; 70486; 70490; 99285; 96365; J2543

== ENCOUNTER → 2022-03-04 | Outpatient (CLI) | payer BC ==
--- NOTE | 2022-03-04 08:23 | CT ---
EXAMINATION TYPE: CT facial bones wo con CT DLP: 740.4 mGycm, Automated exposure control for dose reduction was used. DATE OF EXAM: 03/04/2022 8:05 AM COMPARISON: 01/24/2022. CLINICAL INDICATION:Female, 62 years old with history of M86.9, Right sided mandibular and facial swe lling post dental surgery x2 months ago. TECHNIQUE: Multiple unenhanced axial CT images were obtained of the facial bones soft tissue and bone windows. Coronal, axial and sagittal reformatted images were also provided in soft tissue and bone windows and submitted for interpretation. Additional 3-D reformatted images were obtained on a [employer] workstation. FINDINGS: There is a hypodense region in the right director of sustainability space /lateral pterygoid muscle measuring at leas t 2.8 x 2.4 cm which is suboptimally evaluated without IV contrast and with streak artifact from rosamaria ent's dental fillings. There is asymmetric thickening of the pterygoid muscles with fluid/edema exten d more posteriorly well along the mandible. On series 14 image 21. There is somewhat leftward effacem ent of the right oral pharyngeal wall. There is evidence of osseous erosion along gumaro medial aspect of the mandible near the angle series 15 image 51 and more anteriorly series 11 image 17. There is no evidence of fracture, subluxation, dislocation. The orbits and globes are intact. Extraco nal and intraconal fat is maintained. Scattered paranasal sinus mucosal thickening. IMPRESSION: Right director of sustainability space asymmetric swelling with findings suspicious for underlying possible abscess f ormation. Evaluation slightly limited without IV contrast and secondary to streak artifact from patie nt's dental fillings. Further evaluation with MRI with IV contrast could be of benefit for better del ineation of soft tissues. There is evidence of osseous erosion along the mandible on the right near t he angle and more anteriorly suggestive of osteomyelitis. These findings are worse from prior on 01/06.
== END | disposition home or self-care (01) ==
LOC: RADCTMAIN 07:42
PROVIDERS: ATTEND Dentist Oral and Maxillofacial Surgery
DX: M86.9 Osteomyelitis, unspecified (principal)
CPT/HCPCS: 70486

== ENCOUNTER 2022-03-06 11:11 | Inpatient (IN) | payer BC ==
--- NOTE | 2022-03-06 12:18 | ED ---
General Adult HPI - General Chief complaint: Dental/Oral Stated complaint: jaw pain infection Time Seen by Provider: 03/06/22 12:00 Source: patient, RN notes reviewed Mode of arrival: ambulatory Limitations: no limitations - History of Present Illness Initial comments: 62-year-old female presents emergency Department with chief complaint of right- sided jaw pain. Patient states she's been dealing with an infection for last 5 weeks. Patient's had prior hospitalization and to tooth extractions by Dr. Villalpando. Patient states that she is currently on Keflex 500 mg 3 times a day. Patient states that she had a CT performed 2 days ago ordered by Dr. Villalpando and was advised follow-up with Dr. Maria and sent here for admission. Patient states she cannot open and close her jaw all the way she states that there is pain continues and swelling on the right mandibular region. - Related Data Home Medications Medication Instructions Recorded Confirmed Furosemide [Lasix] 20 mg PO DAILY 04/30/16 08/23/20 Pantoprazole [Protonix] 40 mg PO DAILY 04/30/16 08/23/20 Simvastatin [Zocor] 20 mg PO DAILY 04/30/16 08/23/20 Previous Rx's Medication Instructions Recorded Acetaminophen Tab [Tylenol] 650 mg PO Q6H #30 tab 08/23/20 Docusate [Colace] 100 mg PO BID #20 capsule 08/23/20 Ibuprofen [Motrin] 600 mg PO Q6HR PRN #40 tab 08/23/20 oxyCODONE HCL [OxyIR] 5 mg PO Q6H PRN 3 Days #10 tab 08/23/20 Allergies Allergy/AdvReac Type Severity Reaction Status Date / Time Iodinated Contrast Media Allergy Dyspnea Verified 03/06/22 11:55 [Iodinated Contrast Media - IV Dye] Sulfa (Sulfonamide Allergy Dyspnea Verified 03/06/22 11:55 Antibiotics) Review of Systems ROS Statement: Those systems with pertinent positive or pertinent negative responses have been documented in the HPI. ROS Other: All systems not noted in ROS Statement are negative. Past Medical History Past Medical History: GERD/Reflux, Hyperlipidemia Additional Past Medical History / Comment(s): lower leg edema History of Any Multi-Drug Resistant Organisms: None Reported Past Surgical History: Hernia Repair, Hysterectomy Additional Past Surgical History / Comment(s): D&C'S Past Anesthesia/Blood Transfusion Reactions: No Reported Reaction Past Psychological History: Anxiety, Panic Disorder Smoking Status: Former smoker Past Alcohol Use History: None Reported Past Drug Use History: None Reported - Past Family History Father Family Medical History: No Reported History Mother Family Medical History: Cancer Additional Family Medical History / Comment(s): OVARIAN General Exam Limitations: no limitations General appearance: alert, in no apparent distress Head exam: Present: atraumatic, normocephalic, normal inspection Eye exam: Present: normal appearance, PERRL, EOMI. Absent: scleral icterus, conjunctival injection, periorbital swelling ENT exam: Present: mucous membranes moist. Absent: normal exam, normal oropharynx (Right-sided mandibular sign, trismus noted, there is no erythema) Neck exam: Present: normal inspection, full ROM. Absent: tenderness, meningismus, lymphadenopathy Respiratory exam: Present: normal lung sounds bilaterally. Absent: respiratory distress, wheezes, rales, rhonchi, stridor Cardiovascular Exam: Present: normal rhythm, tachycardia, normal heart sounds. Absent: systolic murmur, diastolic murmur, rubs, gallop, clicks Course Vital Signs 03/06/22 03/06/22 11:51 12:23 Temperature 98.5 F Pulse Rate 112 H 106 H Respiratory 20 18 Rate Blood Pressure 155/79 140/80 O2 Sat by Pulse 96 96 Oximetry Medical Decision Making - Medical Decision Making Was pt. sent in by a medical professional or institution (, PA, WOODEN BARREL MECHANIC, urgent ca re, hospital, or [facility]...) When possible be specific @ -PCP/oral surgeon Did you speak to anyone other than the patient for history (EMS, parent, family, police, friend...)? What history was obtained from this source @ -No Did you review nursing and triage notes (agree or disagree)? Why? @ -I reviewed and agree with nursing and triage notes Were old charts reviewed (outside hosp., previous admission, EMS record, old EKG, old radiological studies, urgent care reports/EKG's, [facility] records)? Report findings @ -I did review prior CT face and prior labs Differential Diagnosis (chest pain, altered mental status, abdominal pain women, abdominal pain men, vaginal bleeding, weakness, fever, dyspnea, syncope, headache, dizziness, GI bleed, back pain, seizure, CVA, palpatations, mental health)? @ -Dental infection, dental abscess, osteomyelitis, EKG interpreted by me (3pts min.). @ -None X-rays interpreted by me (1pt min.). @ -None done CT interpreted by me (1pt min.). @ -None done U/S interpreted by me (1pt. min.). @ -None done What testing was considered but not performed or refused? (CT, X-rays, U/S, labs)? Why? @ -Considered x-ray, CT though patient just had recent CT. What meds were considered but not given or refused? Why? @ -None Did you discuss the management of the patient with other professionals (professionals i.e. , PA, WOODEN BARREL MECHANIC, lab, RT, psych nurse, social insurance administrator, weatherization specialist, teacher, special officer, family independence case manager)? Give summary @ -Dr. Maria hospitalists for admission with consults Was smoking cessation discussed for >3mins.? @ -No Was critical care preformed (if so, how long)? @ -No Were there social determinants of health that impacted care today? How? (Homelessness, low income, unemployed, alcoholism, drug addiction, transportation, low edu. Level, literacy, decrease access to med. care, [facility]cc, rehab)? @ -No Was there de-escalation of care discussed even if they declined (Discuss DNR or withdrawal of care, Hospice)? DNR status @ -No What co-morbidities impacted this encounter? (DM, HTN, Smoking, COPD, CAD, Cancer, CVA, ARF, Chemo, Hep., AIDS, mental health diagnosis, sleep apnea, morbid obesity)? @ -None Was patient admitted / discharged? Hospital course, mention meds given and route, prescriptions, significant lab abnormalities, going to OR and other pertinent info. @ -Admitted patient has facial abscess, osteomyelitis of the mandible patient will be admitted for IV antibodies, consult ID and PICC line Undiagnosed new problem with uncertain prognosis? @ -No Drug Therapy requiring intensive monitoring for toxicity (Heparin, Nitro, Insulin, Cardizem)? @ -No Were any procedures done? @ -No Diagnosis/symptom? @ -default Acute, or Chronic, or Acute on Chronic? @ -Facial abscess Uncomplicated (without systemic symptoms) or Complicated (systemic symptoms)? @ -Complicated Side effects of treatment? @ -No Exacerbation, Progression, or Severe Exacerbation? @ -No Poses a threat to life or bodily function? How? (Chest pain, [place], [place], pneumonia, PE, COPD, DKA, ARF, appy, cholecystitis, CVA, Diverticulitis, Homicidal, Suicidal, threat to staff... and all critical care pts) @ -No Diagnosis/symptom? @ -Osteomyelitis mandible Acute, or Chronic, or Acute on Chronic? @ -Acute Uncomplicated (without systemic symptoms) or Complicated (systemic symptoms)? @ -Complicated Side effects of treatment? @ -none Exacerbation, Progression, or Severe Exacerbation] @ -no Poses a threat to life or bodily function? @ -no Disposition Clinical Impression: Osteomyelitis of mandible, Facial abscess Disposition: ADMITTED IP TO THIS HOSP Condition: Fair Referrals: Vick Maria MD [Primary Care Provider] - 1-2 days Time of Disposition: 12:48
[2022-03-06] MEDS ORDERED: NALOXONE 0.4 MG/ML 1 ML VIAL IV PRN (12:48)
[2022-03-06 12:52] LABS: Anisocytosis Slight; Basophils % (A) 0 %; Eosinophils # (A) 0.2 k/uL (0-0.7); Eosinophils % (A) 2 %; HCT 37.5 % (34.0-46.0); HGB 12.1 gm/dL (11.4-16.0); Lymphocytes # (A) 1.3 k/uL (1.0-4.8); Lymphocytes % (A) 17 %; MCH 25.4 pg (25.0-35.0); MCHC 32.3 g/dL (31.0-37.0); MCV 78.8 fL (80.0-100.0); Mean Platelet Volume 7.3; Microcytosis Slight; Monocytes # (A) 0.4 k/uL (0-1.0); Monocytes % (A) 5 %; Neutrophils # (A) 5.8 k/uL (1.3-7.7); Neutrophils % (A) 75 %; Platelet Count 314 k/uL (150-450); RBC 4.76 m/uL (3.80-5.40); RDW 16.2 % (11.5-15.5); WBC 7.7 k/uL (3.8-10.6)
[2022-03-06] MEDS ORDERED: VANCOMYCIN IV PER PHARMACY 1 EACH MISC MISCELLANE PRN (12:54)
[2022-03-06 13:29] LABS: ALT 19 U/L (4-34); AST 23 U/L (14-36); African American GFR (CKD) >90 (>60 ml/min/1.73 sqM); Albumin 4.1 g/dL (3.5-5.0); Alkaline Phosphatase 112 U/L (38-126); Anion Gap 7 mmol/L; Blood Urea Nitrogen 9 mg/dL (7-17); C Reactive Protein 3.8 mg/dL (<1.0); Calcium 9.4 mg/dL (8.4-10.2); Carbon Dioxide 26 mmol/L (22-30); Chloride 106 mmol/L (98-107); Glucose 90 mg/dL (74-99); Non-African American GFR(CKD) >90 (>60 ml/min/1.73 sqM); Potassium 4.3 mmol/L (3.5-5.1); Sodium 139 mmol/L (137-145); Total Bilirubin 0.4 mg/dL (0.2-1.3); Total Protein 7.3 g/dL (6.3-8.2)
[2022-03-06] MEDS ORDERED: VANCOMYCIN 1,750 MG in SODIUM CHLORIDE 0.9% 500 ML 500 ML IVPB ONE (13:30)
[2022-03-06] MEDS: AMPICILLIN-SULBACTAM 3 GM in SODIUM CHLORIDE 0.9% 100 ML IVPB SCH ×3 (13:59→23:24)
[2022-03-06] MEDS: HYDROcodone/APAP 5-325MG 1 EACH TAB PO PRN ×2 (14:41→21:03)
[2022-03-06 15:01] LABS: Erythrocyte Sedimentation Rate 69 mm/hr (0-20)
[2022-03-06] MEDS ORDERED: IBUPROFEN 600 MG TAB PO PRN (21:12)
[2022-03-06] MEDS ORDERED: ALBUTEROL NEBULIZED 2.5 MG/3 ML INHALATION PRN (21:12)
--- NOTE | 2022-03-06 21:27 | P.CONS ---
History of Present Illness - Reason for Consult Consult date: 03/06/22 Osteomyelitis mandible, Jaw abscess Requesting physician: Nico Mccoy - Chief Complaint Right lower jaw swelling and pain x weeks - History of Present Illness Patient is a 62-year old female with a past medical history significant for hyperlipidemia and GERD patient has been dealing with the right- sided especially lower jaw pain and swelling and drainage since the middle of January 2022 has been treated in the outpatient setting by her dentist and did have removal of the wisdom tooth and molar next to it however the patient seemed to have a persistent problem with drainage pain and swelling patient did presented previously to [facility] 01/24/2021 at that point the patient was transferred to [facility] and patient mention she was there for 8 days and has been treated with IV antibiotic therapy and subsequently discharged home on oral patient is currently on Augmentin 500/125 twice daily and the patient did have a follow-up CT on 03/04/2022 which did shows possible abscess formation and there was concern for bony erosion along the mandible on the right near the angle suggestive of osteomyelitis for the patient has been sent back to the ER by her PCP for admission and IV antibiotic therapy patient denies any high-grade fever or any chills however has been complaining of pain and swelling to the right lower jaw that apparently is getting worse and not getting any better she did have some dull aching pain 2-3 of 10 and no radiation did have some foul- smelling drainage in the mouth and did have difficulty opening her mouth compl etely but no nausea no vomiting and no diarrhea, patient on presentation to the hospital was afebrile and no fever has been recorded subsequently did have a normal white count kidney function normal liver enzymes are normal sed rate is 69 CRP 3.8 patient was started on vancomycin and Unasyn infectious disease was consulted for further management of antibiotic therapy Review of Systems Positive point has been mentioned in the HPI rest of the systems are negative Past Medical History Past Medical History: GERD/Reflux, Hyperlipidemia Additional Past Medical History / Comment(s): lower leg edema History of Any Multi-Drug Resistant Organisms: None Reported Past Surgical History: Hernia Repair, Hysterectomy Additional Past Surgical History / Comment(s): D&C'S Past Anesthesia/Blood Transfusion Reactions: No Reported Reaction Past Psychological History: Anxiety, Panic Disorder Smoking Status: Former smoker Past Alcohol Use History: None Reported Past Drug Use History: None Reported - Past Family History Father Family Medical History: No Reported History Mother Family Medical History: Cancer Additional Family Medical History / Comment(s): OVARIAN Medications and Allergies Home Medications Medication Instructions Recorded Confirmed Type Furosemide [Lasix] 20 mg PO DAILY 04/30/16 03/06/22 History Pantoprazole [Protonix] 40 mg PO DAILY 04/30/16 03/06/22 History Simvastatin [Zocor] 20 mg PO HS 04/30/16 03/06/22 History Ibuprofen [Motrin] 600 mg PO Q6HR PRN #40 tab 08/23/20 03/06/22 Rx Albuterol Inhaler [Ventolin Hfa 1 - 2 puff INHALATION RT-Q6H PRN 03/06/22 03/06/22 History Inhaler] Chlorhexidine Gluconate [Peridex] 15 ml PO PC-BID 03/06/22 03/06/22 History Cyclobenzaprine [Flexeril] 10 mg PO BID 03/06/22 03/06/22 History Fluconazole [Diflucan] 100 mg PO DAILY 03/06/22 03/06/22 History L.acidoph,Paracasei, B.lactis 1 cap PO DAILY 03/06/22 03/06/22 History [Probiotic] Nystatin 1 applic TOPICAL BID 03/06/22 03/06/22 History cefTRIAXone [Rocephin] 2,000 mg IVP Q24HR #42 each 03/08/22 Rx metroNIDAZOLE [Flagyl] 500 mg PO TID #90 tab 03/08/22 Rx Allergies Allergy/AdvReac Type Severity Reaction Status Date / Time Iodinated Contrast Media Allergy Anaphylaxis Verified 03/06/22 14:04 [Iodinated Contrast Media - IV Dye] Sulfa (Sulfonamide Allergy Anaphylaxis Verified 03/06/22 14:04 Antibiotics) Physical Exam Vitals: Vital Signs Temp Pulse Pulse Resp BP BP Pulse Ox 03/06/22 20:59 98.3 F 100 16 171/61 93 L 03/06/22 19:53 98.1 F 96 18 133/74 100 03/06/22 18:57 98.8 F 98 18 144/96 98 03/06/22 14:41 79 18 129/78 97 03/06/22 12:23 106 H 18 140/80 96 03/06/22 11:51 98.5 F 112 H 20 155/79 96 Intake and Output 03/06/22 03/06/22 03/06/22 06:59 14:59 22:59 Intake Total 590 Balance 590 Intake: Oral 590 Other: # Voids 1 Weight 106.594 kg GENERAL DESCRIPTION: Middle-aged female lying in bed, no distress. No tachypnea or accessory muscle of respiration use. HEENT: Shows Pallor , no scleral icterus. Oral mucous membrane is dry. Right lower jaw with swelling and tenderness to touch NECK: Trachea central, no thyromegaly. LUNGS: Unlabored breathing. Clear to auscultation anteriorly. No wheeze or crackle. HEART: S1, S2, regular rate and rhythm. No loud murmur ABDOMEN: Soft, no tenderness , guarding or rigidity, no organomegaly EXTREMITIES: No edema of feet. SKIN: No rash, no masses palpable. NEUROLOGICAL: The patient is awake, alert, oriented x3, mood and affect normal. Results CBC & Chem 7: 03/08/22 08:26 03/08/22 08:26 Labs: Abnormal Lab Results - Last 24 Hours (Table) 03/06/22 03/06/22 Range/Units 12:33 12:33 MCV 78.8 L (80.0-100.0) fL RDW 16.2 H (11.5-15.5) % ESR 69 H (0-20) mm/hr Creatinine 0.44 L (0.52-1.04) mg/dL C-Reactive Protein 3.8 H (<1.0) mg/dL Assessment and Plan (1) Osteomyelitis of mandible Status: Acute Code(s): M27.2 - INFLAMMATORY CONDITIONS OF JAWS SNOMED Code(s): 144017036 Plan: 1patient with right lower jaw abscess and cellulitis and concerning for osteomyelitis of the mandible and this patient has been dealing with this infection since the middle of January 2022 and previously admitted at [facility] failing outpatient oral antibiotic therapy more likely from the burden of disease. 2patient will benefit from oral surgery evaluation for drainage of the abscess and deep culture both aerobes and anaerobes 3-patient to continue the Unasyn and vancomycin wound was significantly functional grossly 4patient will likely need outpatient antibiotic on discharge We will follow on clinical condition and cultures to further adjust medication if needed Thank you for this consultation we will follow the patient along with you Time with Patient: Greater than 30
[2022-03-06] MEDS: ATORVASTATIN 10 MG TAB PO SCH (21:40)
[2022-03-06] MEDS: CYCLOBENZAPRINE 10 MG TAB PO SCH (21:40)
[2022-03-07] MEDS ORDERED: VANCOMYCIN 1,750 MG in SODIUM CHLORIDE 0.9% 500 ML 500 ML IVPB SCH (02:00)
[2022-03-07] MEDS: HYDROcodone/APAP 5-325MG 1 EACH TAB PO PRN ×4 (03:43→22:26)
[2022-03-07] MEDS: AMPICILLIN-SULBACTAM 3 GM in SODIUM CHLORIDE 0.9% 100 ML IVPB SCH ×3 (06:00→18:10)
[2022-03-07 06:32] LABS: African American GFR (CKD) >90 (>60 ml/min/1.73 sqM); Non-African American GFR(CKD) >90 (>60 ml/min/1.73 sqM)
[2022-03-07] MEDS: LACTOBACILLUS ACIDOPH & BULGAR 1 EACH PACKET PO SCH (08:23)
[2022-03-07] MEDS: FLUCONAZOLE 100 MG TAB PO SCH (08:24)
[2022-03-07] MEDS: FUROSEMIDE 20 MG TAB PO SCH ×2 (08:24→08:26)
[2022-03-07] MEDS: NYSTATIN 100,000UNIT/GM CREAM 30 GM TUBE TOPICAL SCH ×2 (08:24→22:22)
[2022-03-07] MEDS: CYCLOBENZAPRINE 10 MG TAB PO SCH ×2 (08:24→22:19)
[2022-03-07] MEDS: PANTOPRAZOLE 40 MG TABLET PO SCH (08:24)
[2022-03-07] MEDS: CHLORHEXIDINE GLUCONATE 15 ML CUP MUCOUS MEM SCH ×2 (08:25→18:10)
[2022-03-07] MEDS: VANCOMYCIN 1,750 MG in SODIUM CHLORIDE 0.9% 500 ML 500 ML IVPB SCH ×2 (08:58→18:33)
--- NOTE | 2022-03-07 09:03 | P.HPIM ---
History of Present Illness H&P Date: 03/07/22 Chief Complaint: Jaw pain/infection This is a 62-year-old female who presented to the emergency department he yesterday with complaint of right-sided jaw pain. For the last several weeks patient has been dealing with an infection. In the middle of January she was seen in our office and was given Rocephin. After that she was seen here at [facility] but then transferred to [facility] after no ENT was personal care assistant here, she was sent home on oral antibiotics. Patient has been working with Dr. Villalpando regards to this as well and a CT was performed 2 days ago which showed possible abscess formation and concern for osteomyelitis of the right jaw. Yesterday Dr. Maria recommended patient present to the ER for admission. Patient has been started on vancomycin and Unasyn. She is seen this morning sitting in chair with a warm pack on her right jaw. She states pain is controlled but is uncomfortable. She is able to open and close mouth and bite down. Review of Systems Constitutional: Denies chills, Denies fever Ears, nose, mouth and throat: Reports mouth pain, Reports swelling in mouth Cardiovascular: Denies chest pain, Denies dyspnea on exertion Respiratory: Denies cough, Denies dyspnea Gastrointestinal: Denies abdominal pain, Denies constipation, Denies diarrhea Neurological: Denies change in mentation, Denies headaches Past Medical History Past Medical History: GERD/Reflux, Hyperlipidemia Additional Past Medical History / Comment(s): lower leg edema History of Any Multi-Drug Resistant Organisms: None Reported Past Surgical History: Hernia Repair, Hysterectomy Additional Past Surgical History / Comment(s): D&C'S Past Anesthesia/Blood Transfusion Reactions: No Reported Reaction Past Psychological History: Anxiety, Panic Disorder Smoking Status: Former smoker Past Alcohol Use History: None Reported Past Drug Use History: None Reported - Past Family History Father Family Medical History: No Reported History Mother Family Medical History: Cancer Additional Family Medical History / Comment(s): OVARIAN Medications and Allergies Home Medications Medication Instructions Recorded Confirmed Type Furosemide [Lasix] 20 mg PO DAILY 04/30/16 03/06/22 History Pantoprazole [Protonix] 40 mg PO DAILY 04/30/16 03/06/22 History Simvastatin [Zocor] 20 mg PO HS 04/30/16 03/06/22 History Ibuprofen [Motrin] 600 mg PO Q6HR PRN #40 tab 08/23/20 03/06/22 Rx Albuterol Inhaler [Ventolin Hfa 1 - 2 puff INHALATION RT-Q6H PRN 03/06/22 03/06/22 History Inhaler] Amoxic-Pot Clav 500-125 mg 1 tab PO TID 03/06/22 03/06/22 History [Augmentin 500-125 mg] Chlorhexidine Gluconate [Peridex] 15 ml PO PC-BID 03/06/22 03/06/22 History Cyclobenzaprine [Flexeril] 10 mg PO BID 03/06/22 03/06/22 History Fluconazole [Diflucan] 100 mg PO DAILY 03/06/22 03/06/22 History L.acidoph,Paracasei, B.lactis 1 cap PO DAILY 03/06/22 03/06/22 History [Probiotic] Nystatin 1 applic TOPICAL BID 03/06/22 03/06/22 History Allergies Allergy/AdvReac Type Severity Reaction Status Date / Time Iodinated Contrast Media Allergy Anaphylaxis Verified 03/06/22 14:04 [Iodinated Contrast Media - IV Dye] Sulfa (Sulfonamide Allergy Anaphylaxis Verified 03/06/22 14:04 Antibiotics) Physical Exam Vitals: Vital Signs Temp Pulse Pulse Resp BP BP Pulse Ox 03/07/22 07:05 98.3 F 92 16 129/80 90 L 03/07/22 02:00 97.8 F 85 16 137/82 94 L 03/06/22 20:59 98.3 F 100 16 171/61 93 L 03/06/22 19:53 98.1 F 96 18 133/74 100 03/06/22 18:57 98.8 F 98 18 144/96 98 03/06/22 14:41 79 18 129/78 97 03/06/22 12:23 106 H 18 140/80 96 03/06/22 11:51 98.5 F 112 H 20 155/79 96 Intake and Output 03/06/22 03/07/22 03/07/22 22:59 06:59 14:59 Intake Total 590 590 Balance 590 590 Intake: Oral 590 590 Other: Voiding Method Toilet # Voids 1 2 - Constitutional General appearance: cooperative, no no acute distress - EENT Edema to right lower mandible, no erythema Eyes: EOMI, PERRLA - Neck Neck: normal ROM, no rigidity - Respiratory Respiratory: bilateral: CTA - Cardiovascular Rhythm: regular Heart sounds: normal: S1, S2 - Gastrointestinal General gastrointestinal: soft, no tenderness - Integumentary Integumentary: normal, normal turgor - Psychiatric Psychiatric: A&O x's 3, appropriate affect, intact judgment & insight Results CBC & Chem 7: 03/06/22 12:33 03/07/22 05:33 Labs: Abnormal Lab Results - Last 24 Hours (Table) 03/06/22 03/06/22 03/07/22 Range/Units 12:33 12:33 05:33 MCV 78.8 L (80.0-100.0) fL RDW 16.2 H (11.5-15.5) % ESR 69 H (0-20) mm/hr Creatinine 0.44 L 0.39 L (0.52-1.04) mg/dL C-Reactive Protein 3.8 H (<1.0) mg/dL Thrombosis Risk Factor Assmnt - Choose All That Apply Any of the Below Risk Factors Present?: Yes Each Factor Represents 1 point: Obesity (BMI >25), Swollen legs (current) Each Risk Factor Represents 2 Points: Age 61-74 years Each Risk Factor Represents 3 Points: History of DVT/PE Thrombosis Risk Factor Assessment Total Risk Factor Score: 7 Thrombosis Risk Factor Assessment Level: High Risk Assessment and Plan (1) Facial abscess Current Visit: Yes Status: Acute Code(s): L02.01 - CUTANEOUS ABSCESS OF FACE SNOMED Code(s): 450353876 (2) Osteomyelitis of mandible Current Visit: Yes Status: Acute Code(s): M27.2 - INFLAMMATORY CONDITIONS OF JAWS SNOMED Code(s): 977340278 (3) Jaw pain Current Visit: Yes Status: Acute Code(s): R68.84 - JAW PAIN SNOMED Code(s): 976738730 Plan: Consult to infectious disease Consult to Dr. Villalpando Consult to Dr. Gamble for PICC line placement Order labs for tomorrow morning. Follow antibiotic orders per Dr. Lynn Patient seen and evaluated by nurse practitioner, physician in agreement with plan
[2022-03-07] MEDS ORDERED: LIDOCAINE 2% (PF) 20 MG/ML 5 ML VIAL SQ ONE (09:55)
--- NOTE | 2022-03-07 10:52 | IR ---
PICC LINE PLACEMENT: HISTORY: Infection requiring long-term antibiotic therapy PROCEDURE: Ultrasound and fluoroscopic guidance of PICC line placement. COMPLICATIONS: None ANESTHESIA: 1. 1% Lidocaine locally. FINDINGS/TECHNIQUE: The procedure was explained to the patient. The risks, complications, benefits and alternatives were discussed and any questions were answered. Informed consent was obtained. The patient was placed supine on the fluoroscopic table and prepped and draped in the usual sterile fash ion. Utilizing a 21 gauge needle and sonographic and fluoroscopic guidance, access in the left basi lic vein was achieved and there is placement of a 0.018 guidewire. The vein is patent. A 4-F sheath was placed over the guidewire. The guidewire and dilator were removed and a 4-F. PICC line was plac ed through the sheath with the tip at the level of the SVC. The sheath was removed, the catheter was flushed and sutured into position. The patient was stable throughout the procedure and remained sta ble upon discharge from the Department of Radiology. The vein puncture was patent under ultrasound. A dodge scale image was obtained to document patency of the vein punctured. All elements of the maximal barrier technique were utilized. FLUOROSCOPY TIME: 0.1 minutes of fluoroscopy and one images submitted IMPRESSION: Successful PICC line placement under ultrasound and fluoroscopic guidance.
[2022-03-07 11:37] VITALS: BMI 43.0
--- NOTE | 2022-03-07 12:31 | P.PN ---
Subjective Progress Note Date: 03/07/22 Principal diagnosis: Right lower jaw abscess and Osteomyelitis Patient is a 62-year old female with a past medical history significant for hyperlipidemia and GERD patient has been dealing with the right- sided especially lower jaw pain and swelling and drainage since the middle of January 2022 patient did haveCT on 03/04/2022 which did shows possible abscess formation and there was concern for bony erosion along the mandible on the right near the angle suggestive of osteomyelitis. On today's evaluation is 03/07/2022, the patient denies having any fever or chills since completing of discomfort in the right lower jaw area and a bad taste in mouth from some drainage, the denies chest pain shortness of breath or cough no abdominal pain or diarrhea Objective - Vital Signs Vital signs: Vital Signs Temp 98.3 F 03/07/22 07:05 Pulse 92 03/07/22 07:05 Resp 16 03/07/22 07:05 BP 129/80 03/07/22 07:05 Pulse Ox 90 L 03/07/22 07:05 FiO2 Intake & Output 03/06/22 03/07/22 03/07/22 18:59 06:59 18:59 Intake Total 590 590 Balance 590 590 Weight 106.594 kg Intake: Oral 590 590 Other: Voiding Method Toilet # Voids 1 2 - Exam GENERAL DESCRIPTION: A middle-age female up in the chair in no distress HEENT: Right lower jaw with some swelling and tenderness RESPIRATORY SYSTEM: Unlabored breathing , decreased breath sounds at bases HEART: S1 S2 regular rate and rhythm , ABDOMEN: Soft , no tenderness EXTREMITIES: No edema feet - Labs CBC & Chem 7: 03/06/22 12:33 03/07/22 05:33 Labs: Abnormal Lab Results - Last 24 Hours (Table) 03/06/22 03/06/22 03/07/22 Range/Units 12:33 12:33 05:33 MCV 78.8 L (80.0-100.0) fL RDW 16.2 H (11.5-15.5) % ESR 69 H (0-20) mm/hr Creatinine 0.44 L 0.39 L (0.52-1.04) mg/dL C-Reactive Protein 3.8 H (<1.0) mg/dL Assessment and Plan (1) Osteomyelitis of mandible Current Visit: Yes Status: Acute Code(s): M27.2 - INFLAMMATORY CONDITIONS OF JAWS SNOMED Code(s): 286545606 Plan: 1patient with right lower jaw abscess and cellulitis and concerning for osteomyelitis of the mandible and this patient has been dealing with this infection since the middle of January 2022 and previously admitted at [facility] failing outpatient oral antibiotic therapy more likely from the burden of disease. 2await oral surgery evaluation for drainage of the abscess and deep culture both aerobes and anaerobes 3-patient to continue the Unasyn and vancomycin while waiting for the workup to be completed and cultures to finalize Time with Patient: Less than 30
--- NOTE | 2022-03-07 20:56 | P.GSCN ---
History of Present Illness Consult date: 03/07/22 Reason for Consult: Osteomyelitis of the right jaw Requesting physician: Vick Maria History of present illness: A 62-year-old female presents with trismus of her mandible present since the middle of January. Patient patient was admitted mid-January for right sided facial swelling and difficulty opening her mouth. She responded to IV antibiotics at that time swelling went down but the trismus only slightly improv ed. Patient presented to our oral surgery clinic as an outpatient and to teeth were removed from the right lower jaw which appeared to be the source of infection. The patient's swelling improved but the patient's trismus is only slightly improved and is now getting worse. Patient was seen by ENT as an outpatient who ruled out parotid gland involvement. At one point exposed bone intraorally from the right mandible was noted but has since resolved. Patient reports history of purulent discharge in the past but no discharge recently. Review of Systems - Constitutional Reports as per HPI Past Medical History Past Medical History: GERD/Reflux, Hyperlipidemia Additional Past Medical History / Comment(s): lower leg edema History of Any Multi-Drug Resistant Organisms: None Reported Past Surgical History: Hernia Repair, Hysterectomy Additional Past Surgical History / Comment(s): D&C'S Past Anesthesia/Blood Transfusion Reactions: No Reported Reaction Past Psychological History: Anxiety, Panic Disorder Smoking Status: Former smoker Past Alcohol Use History: None Reported Past Drug Use History: None Reported - Past Family History Father Family Medical History: No Reported History Mother Family Medical History: Cancer Additional Family Medical History / Comment(s): OVARIAN Medications and Allergies Home Medications Medication Instructions Recorded Confirmed Type Furosemide [Lasix] 20 mg PO DAILY 04/30/16 03/06/22 History Pantoprazole [Protonix] 40 mg PO DAILY 04/30/16 03/06/22 History Simvastatin [Zocor] 20 mg PO HS 04/30/16 03/06/22 History Ibuprofen [Motrin] 600 mg PO Q6HR PRN #40 tab 08/23/20 03/06/22 Rx Albuterol Inhaler [Ventolin Hfa 1 - 2 puff INHALATION RT-Q6H PRN 03/06/22 03/06/22 History Inhaler] Amoxic-Pot Clav 500-125 mg 1 tab PO TID 03/06/22 03/06/22 History [Augmentin 500-125 mg] Chlorhexidine Gluconate [Peridex] 15 ml PO PC-BID 03/06/22 03/06/22 History Cyclobenzaprine [Flexeril] 10 mg PO BID 03/06/22 03/06/22 History Fluconazole [Diflucan] 100 mg PO DAILY 03/06/22 03/06/22 History L.acidoph,Paracasei, B.lactis 1 cap PO DAILY 03/06/22 03/06/22 History [Probiotic] Nystatin 1 applic TOPICAL BID 03/06/22 03/06/22 History Allergies Allergy/AdvReac Type Severity Reaction Status Date / Time Iodinated Contrast Media Allergy Anaphylaxis Verified 03/06/22 14:04 [Iodinated Contrast Media - IV Dye] Sulfa (Sulfonamide Allergy Anaphylaxis Verified 03/06/22 14:04 Antibiotics) Surgical - Exam Vital Signs Temp Pulse Resp BP Pulse Ox 98.5 F 112 H 20 155/79 96 03/06/22 11:51 03/06/22 11:51 03/06/22 11:51 03/06/22 11:51 03/06/22 11:51 Patient sitting up in a chair watching TV comfortably reports minimal pain. The patient has a nonfluctuant swelling of the right angle of the mandible to the superior coronoid process of the mandible in the area of the masseter muscle. This is not warm or fluctuant and is minimally tender upon palpation. Patient is unable to open her mouth more than 11-12 mm and upon opening she deviates sharply to the right. Intraorally edentulous region of the posterior right mandible does not have any evidence of bony protuberance. Heavy pressure on the swelling does not elicit any intraoral discharge. Unable to express saliva in the right parotid duct possibly due to dehydration. Mucous membranes to feel moist. Results CAT scan report reviewed suggestive of osteomyelitis of the right jaw. - Labs 03/06/22 12:33 03/07/22 05:33 Abnormal Lab Results - Last 24 Hours (Table) 03/07/22 Range/Units 05:33 Creatinine 0.39 L (0.52-1.04) mg/dL Microbiology - Last 24 Hours (Table) 03/06/22 12:33 Blood Culture - Preliminary Blood No Growth after 24 hours 03/06/22 12:33 Blood Culture - Preliminary Blood No Growth after 24 hours Diabetes panel 01/31/23 Range/Units 05:33 Creatinine 0.39 L (0.52-1.04) mg/dL Pituitary panel 03/07/22 Range/Units 05:33 Creatinine 0.39 L (0.52-1.04) mg/dL Adrenal panel 03/07/22 Range/Units 05:33 Creatinine 0.39 L (0.52-1.04) mg/dL Assessment and Plan Assessment: Working diagnosis of osteomyelitis the right jaw seems appropriate given the clinical presentation and the CAT scan report. Unfortunately there is no obvious abscess or fluctuant area with which to drain and achieve cultures. Plan: Current IV antibiotic therapy seems appropriate and if evidence of more consolidation on the right mandible may benefit from fine-needle aspiration inferior border the mandible and an effort to achieve culture. Patient is known to our practice and had seen Dr. Villalpando yesterday and had an appointment to see him next Sunday in 1 week after course of IV antibiotics. Time with Patient: Greater than 30
[2022-03-07] MEDS: ATORVASTATIN 10 MG TAB PO SCH (22:19)
[2022-03-08] MEDS: AMPICILLIN-SULBACTAM 3 GM in SODIUM CHLORIDE 0.9% 100 ML IVPB SCH ×2 (00:48→05:29)
[2022-03-08] MEDS: VANCOMYCIN 1,750 MG in SODIUM CHLORIDE 0.9% 500 ML 500 ML IVPB SCH (02:22)
[2022-03-08 02:51] VITALS: PULSE 85; RESP 16; TEMP 97.7
[2022-03-08 07:39] VITALS: BP 149/80
--- NOTE | 2022-03-08 08:39 | P.DS ---
Providers Date of admission: 03/06/22 12:46 Attending physician: Vick Maria Consults: 03/06/22 12:48 Consult Physician Urgent Consulting Provider: Lubna Lynn Consult Reason/Comments: Osteomyelitis mandible, facial abscess Do you want consulting provider notified?: Yes 03/07/22 08:11 Consult Physician Routine Consulting Provider: Chago Villalpando Consult Reason/Comments: facial abscess Do you want consulting provider notified?: Yes Primary care physician: Vick Maria Hospital Course: This is a discharge summary on a 62-year-old lady who is had cheek infection which is now unfortunately, progress to us amount as the mandible. Computed tomography scan did show this. She was admitted for appropriate antibiotic treatment. She's been started on empiric antibiotic therapy and will be dis charged once cleared by infectious disease for appropriate home antibiotic treatment. I suspect she will need a chronic course of IV therapy. Appreciate multiple consultants input. She will be discharged once cleared by infectious disease. The patient's follow-up with me in about 3-5 days Patient Condition at Discharge: Fair Plan - Discharge Summary New Discharge Prescriptions: Continue Furosemide [Lasix] 20 mg PO DAILY Pantoprazole [Protonix] 40 mg PO DAILY Simvastatin [Zocor] 20 mg PO HS Ibuprofen [Motrin] 600 mg PO Q6HR PRN #40 tab PRN Reason: Pain Nystatin 1 applic TOPICAL BID Fluconazole [Diflucan] 100 mg PO DAILY Amoxic-Pot Clav 500-125 mg [Augmentin 500-125 mg] 1 tab PO TID Cyclobenzaprine [Flexeril] 10 mg PO BID Chlorhexidine Gluconate [Peridex] 15 ml PO PC-BID Albuterol Inhaler [Ventolin Hfa Inhaler] 1 - 2 puff INHALATION RT-Q6H PRN PRN Reason: Shortness Of Breath L.acidoph,Paracasei, B.lactis [Probiotic] 1 cap PO DAILY Discharge Medication List Furosemide [Lasix] 20 mg PO DAILY 04/30/16 [History] Pantoprazole [Protonix] 40 mg PO DAILY 04/30/16 [History] Simvastatin [Zocor] 20 mg PO HS 04/30/16 [History] Ibuprofen [Motrin] 600 mg PO Q6HR PRN #40 tab 08/23/20 [Rx] Albuterol Inhaler [Ventolin Hfa Inhaler] 1 - 2 puff INHALATION RT-Q6H PRN 03/06/22 [History] Amoxic-Pot Clav 500-125 mg [Augmentin 500-125 mg] 1 tab PO TID 03/06/22 [History] Chlorhexidine Gluconate [Peridex] 15 ml PO PC-BID 03/06/22 [History] Cyclobenzaprine [Flexeril] 10 mg PO BID 03/06/22 [History] Fluconazole [Diflucan] 100 mg PO DAILY 03/06/22 [History] L.acidoph,Paracasei, B.lactis [Probiotic] 1 cap PO DAILY 03/06/22 [History] Nystatin 1 applic TOPICAL BID 03/06/22 [History] Follow up Appointment(s)/Referral(s): Vick Maria MD [Primary Care Provider] - 3 Days Discharge Disposition: HOME WITH HOME HEALTH SERVICES
[2022-03-08] MEDS: LACTOBACILLUS ACIDOPH & BULGAR 1 EACH PACKET PO SCH (08:51)
[2022-03-08] MEDS: FUROSEMIDE 20 MG TAB PO SCH (08:51)
[2022-03-08] MEDS: CHLORHEXIDINE GLUCONATE 15 ML CUP MUCOUS MEM SCH (08:51)
[2022-03-08] MEDS: CYCLOBENZAPRINE 10 MG TAB PO SCH (08:51)
[2022-03-08] MEDS: FLUCONAZOLE 100 MG TAB PO SCH (08:51)
[2022-03-08] MEDS: PANTOPRAZOLE 40 MG TABLET PO SCH (08:52)
[2022-03-08] MEDS: NYSTATIN 100,000UNIT/GM CREAM 30 GM TUBE TOPICAL SCH (08:52)
[2022-03-08] MEDS ORDERED: VANCOMYCIN TROUGH DUE 1 EACH MISC MISCELLANE ONE (09:00)
[2022-03-08 09:24] LABS: ALT 18 U/L (4-34); AST 24 U/L (14-36); African American GFR (CKD) >90 (>60 ml/min/1.73 sqM); Albumin 3.7 g/dL (3.5-5.0); Albumin/Globulin Ratio 1.2; Alkaline Phosphatase 95 U/L (38-126); Anion Gap 6 mmol/L; Blood Urea Nitrogen 5 mg/dL (7-17); Calcium 9.1 mg/dL (8.4-10.2); Carbon Dioxide 25 mmol/L (22-30); Chloride 109 mmol/L (98-107); Glucose 103 mg/dL (74-99); Non-African American GFR(CKD) >90 (>60 ml/min/1.73 sqM); Potassium 4.1 mmol/L (3.5-5.1); Sodium 140 mmol/L (137-145); Total Bilirubin 0.5 mg/dL (0.2-1.3); Total Protein 6.7 g/dL (6.3-8.2)
[2022-03-08] MEDS ORDERED: VANCOMYCIN 1,500 MG in SODIUM CHLORIDE 0.9% 500 ML 500 ML IVPB SCH (10:00)
[2022-03-08 10:35] LABS: HCT 36.9 % (37.2-46.3); HGB 10.9 g/dL (12.0-15.0); MCH 24.9 pg (27.0-32.0); MCHC 29.5 g/dL (32.0-37.0); MCV 84.4 fL (80.0-97.0); Mean Platelet Volume 9.9 fL (9.5-12.2); NRBC Per 100 WBC 0 /100 WBCS (0.0-0.0); Platelet Count 275 X 10*3/uL (140-440); RBC 4.37 X 10*6/uL (4.10-5.20); RDW 17.1 % (11.5-14.5); WBC 5.89 X 10*3/uL (4.50-10.00)
--- NOTE | 2022-03-09 12:06 | P.PN ---
Subjective Progress Note Date: 03/08/22 Principal diagnosis: Right lower jaw abscess and Osteomyelitis Patient is a 62-year old female with a past medical history significant for hyperlipidemia and GERD patient has been dealing with the right- sided especially lower jaw pain and swelling and drainage since the middle of January 2022 patient did haveCT on 03/04/2022 which did shows possible abscess formation and there was concern for bony erosion along the mandible on the right near the angle suggestive of osteomyelitis. Patient has been evaluated by oral surgery recommended no drainage procedure On today's evaluation is 03/08/2022, the patient remains to be afebrile, the patient discomfort in the right lower jaw area has decreased in intensity, the denies chest pain shortness of breath or cough no abdominal pain or diarrhea, patient feeling better and is already been discharged by admitting team Objective - Vital Signs Vital signs: Vital Signs Temp 97.7 F 03/08/22 07:04 Pulse 85 03/08/22 07:04 Resp 16 03/08/22 07:04 BP 149/80 03/08/22 07:04 Pulse Ox 92 L 03/08/22 07:04 FiO2 Intake & Output 03/07/22 03/08/22 03/08/22 18:59 06:59 18:59 Intake Total 590 Balance 590 Weight 106.594 kg Intake: Oral 590 Other: Voiding Method Toilet Toilet # Voids 1 3 - Exam GENERAL DESCRIPTION: A middle-age female up in the chair in no distress HEENT: Right lower jaw swelling and tenderness slightly decreased RESPIRATORY SYSTEM: Unlabored breathing , decreased breath sounds at bases HEART: S1 S2 regular rate and rhythm , ABDOMEN: Soft , no tenderness EXTREMITIES: No edema feet - Labs CBC & Chem 7: 03/08/22 08:26 03/08/22 08:26 Labs: Abnormal Lab Results - Last 24 Hours (Table) 03/08/22 Range/Units 08:26 Chloride 109 H (98-107) mmol/L BUN 5 L (7-17) mg/dL Creatinine 0.38 L (0.52-1.04) mg/dL Glucose 103 H (74-99) mg/dL Microbiology - Last 24 Hours (Table) 03/06/22 12:33 Blood Culture - Preliminary Blood No Growth after 24 hours 03/06/22 12:33 Blood Culture - Preliminary Blood No Growth after 24 hours Assessment and Plan (1) Osteomyelitis of mandible Status: Acute Code(s): M27.2 - INFLAMMATORY CONDITIONS OF JAWS SNOMED Code(s): 429775783 Plan: 1patient with right lower jaw abscess and cellulitis and concerning for osteomyelitis of the mandible and this patient has been dealing with this infection since the middle of January 2022 and previously admitted at [facility] failing outpatient oral antibiotic therapy more likely from the burden of disease. 2patient has been evaluated by oral surgery recommended no drainage at this point 3-patient has shown clinical improvement however keeping in mind her Osteomyeli tis she will need IV antibiotics, the patient has been given the option of IV Unasyn at home versus daily Rocephin and oral Flagyl at the infusion clinic patient has opted to go to the infusion clinic prescription has been provided to the trimming caser and close outpatient follow-up Time with Patient: Less than 30
== END 2022-03-08 14:35 | disposition home or self-care (01) | DRG 158 ==
LOC: EC 11:11 → 5NMEDONC 12:46
PROVIDERS: ADMIT Family Medicine; ATTEND Family Medicine
PROC: 02HV33Z Insertion of Infusion Device into Superior Vena Cava, Percutaneous Approach (ICD-10-PCS; principal; 2022-03-07 07:30)
DX: M27.2 Inflammatory conditions of jaws (principal); L02.01 Cutaneous abscess of face; E78.5 Hyperlipidemia, unspecified; E86.0 Dehydration; K21.9 Gastro-esophageal reflux disease without esophagitis; Z79.2 Long term (current) use of antibiotics; Z79.899 Other long term (current) drug therapy; Z87.891 Personal history of nicotine dependence; Z88.2 Allergy status to sulfonamides; Z91.041 Radiographic dye allergy status
CPT/HCPCS: 36415; 36573; 80053; 80202; 82565; 83605; 85025; 85027; 85652; 86140; 87040; 96365; 96366; 96367; 99284

== ENCOUNTER 2023-04-08 13:05 | Emergency (ER) | payer BC ==
--- NOTE | 2023-04-08 13:17 | ED ---
Extremity Problem HPI - General Stated complaint: Knee pain Time Seen by Provider: 04/08/23 13:16 Source: patient, RN notes reviewed Mode of arrival: ambulatory Limitations: no limitations - History of Present Illness Initial comments: Patient is a 63-year-old female presenting to the ER with a chief complaint of right leg pain and swelling. Sent here from urgent care to rule out DVT. Patient states she did fall 2 weeks ago on her right knee. She now reports calf swelling, tenderness and bruising. Does have a history of DVTs. Not currently on a blood thinner. Christiano any chest pain, palpitations, shortness of breath, chills or fevers. - Related Data Home Medications Medication Instructions Recorded Confirmed Furosemide [Lasix] 20 mg PO DAILY 04/30/16 03/06/22 Pantoprazole [Protonix] 40 mg PO DAILY 04/30/16 03/06/22 Simvastatin [Zocor] 20 mg PO HS 04/30/16 03/06/22 Albuterol Inhaler [Ventolin Hfa 1 - 2 puff INHALATION RT-Q6H PRN 03/06/22 03/06/22 Inhaler] Chlorhexidine Gluconate [Peridex] 15 ml PO PC-BID 03/06/22 03/06/22 Cyclobenzaprine [Flexeril] 10 mg PO BID 03/06/22 03/06/22 Fluconazole [Diflucan] 100 mg PO DAILY 03/06/22 03/06/22 L.acidoph,Paracasei, B.lactis 1 cap PO DAILY 03/06/22 03/06/22 [Probiotic] Nystatin 1 applic TOPICAL BID 03/06/22 03/06/22 Previous Rx's Medication Instructions Recorded Ibuprofen [Motrin] 600 mg PO Q6HR PRN #40 tab 08/23/20 cefTRIAXone [Rocephin] 2,000 mg IVP Q24HR #42 each 03/08/22 metroNIDAZOLE [Flagyl] 500 mg PO TID #90 tab 03/08/22 Apixaban [Eliquis Starter Pack 0 mg PO DIRECTED 30 Days #1 04/08/23 (for VTE)] packet Allergies Allergy/AdvReac Type Severity Reaction Status Date / Time Iodinated Contrast Media Allergy Anaphylaxis Verified 04/08/23 14:23 [Iodinated Contrast Media - IV Dye] Sulfa (Sulfonamide Allergy Anaphylaxis Verified 04/08/23 14:23 Antibiotics) Review of Systems ROS Statement: Those systems with pertinent positive or pertinent negative responses have been documented in the HPI. ROS Other: All systems not noted in ROS Statement are negative. Past Medical History Past Medical History: GERD/Reflux, Hyperlipidemia Additional Past Medical History / Comment(s): lower leg edema History of Any Multi-Drug Resistant Organisms: None Reported Past Surgical History: Hernia Repair, Hysterectomy Additional Past Surgical History / Comment(s): D&C'S Past Anesthesia/Blood Transfusion Reactions: No Reported Reaction Past Psychological History: Anxiety, Panic Disorder Smoking Status: Former smoker Past Alcohol Use History: None Reported Past Drug Use History: None Reported - Past Family History Father Family Medical History: No Reported History Mother Family Medical History: Cancer Additional Family Medical History / Comment(s): OVARIAN General Exam - General Exam Comments Initial Comments: Visual Physical Exam Vital signs reviewed General: Well-appearing, nontoxic, no acute distress. Head: Normocephalic, atraumatic Eyes: PERRLA, EOMI ENT: Airway patent Chest: Nonlabored breathing Skin: No visual rash, normal skin tone Neuro: Alert and oriented 3 Musculoskeletal: Significant ecchymosis to right calf calf appears large General appearance: alert, in no apparent distress Head exam: Present: atraumatic, normocephalic, normal inspection Eye exam: Present: normal appearance, PERRL, EOMI. Absent: scleral icterus, conjunctival injection, periorbital swelling Respiratory exam: Present: normal lung sounds bilaterally. Absent: respiratory distress, wheezes, rales, rhonchi, stridor Cardiovascular Exam: Present: regular rate, normal rhythm, normal heart sounds. Absent: systolic murmur, diastolic murmur, rubs, gallop, clicks Extremities exam: Present: calf tenderness (Right calf exquisitely tender to touch. Significant ecchymosis and edema comapred to left. Positive Homans on right. Right 2+ dorsalis pedis pulse. Full active ROM ) Neurological exam: Present: alert, oriented X3, CN II-XII intact Psychiatric exam: Present: normal affect, normal mood Skin exam: Present: warm, dry, intact, normal color. Absent: rash Course Vital Signs 04/08/23 14:17 Temperature 98.3 F Pulse Rate 87 Respiratory 18 Rate Blood Pressure 138/83 O2 Sat by Pulse 96 Oximetry - Reevaluation(s) Reevaluation #1: 04/08/23 16:28 Dr. Azul spoke with Dr Maria who advised outpatient follow-up. Medical Decision Making - Medical Decision Making I performed the quick note portion of this chart. Electronically signed by Del Schrader PA-C Was pt. sent in by a medical professional or institution (, MARIO, INSIDE SALES ACCOUNT EXECUTIVE, urgent care, hospital, or long-term...) When possible be specific @ -Patient sent from to rule out DVT. Did you speak to anyone other than the patient for history (EMS, parent, family, police, friend...)? What history was obtained from this source @ -No Did you review nursing and triage notes (agree or disagree)? Why? @ -I reviewed and agree with nursing and triage notes Were old charts reviewed (outside hosp., previous admission, EMS record, old EKG, old radiological studies, urgent care reports/EKG's, long-term records)? Report findings @ -No old charts were reviewed Differential Diagnosis (chest pain, altered mental status, abdominal pain women, abdominal pain men, vaginal bleeding, weakness, fever, dyspnea, syncope, headache, dizziness, GI bleed, back pain, seizure, CVA, palpatations, mental hea lth, musculoskeletal)? @ -Differential Musculoskeletal:Muscular strain, contusion, ligament sprain, fracture, arthritis, septic arthritis, bursitis, cellulitis, muscle spasm, nerve compression, DVT, arterial occlusion, herpes zoster, electrolyte abnormality, tumor.... This is not meant to be in all inclusive list EKG interpreted by me (3pts min.). @ -None done X-rays interpreted by me (1pt min.). @ -None done CT interpreted by me (1pt min.). @ -None done U/S interpreted by me (1pt. min.). @ -Venous Doppler ultrasound right lower extremity positive for DVT. DVT extends from femoral to popliteal vein. What testing was considered but not performed or refused? (CT, X-rays, U/S, labs)? Why? @ -None What meds were considered but not given or refused? Why? @ -None Did you discuss the management of the patient with other professionals (professionals i.e. , MARIO, INSIDE SALES ACCOUNT EXECUTIVE, lab, RT, psych nurse, social director, quality control tester, teacher, water resources technical officer, patient case coordinator)? Give summary @ -Yes, Dr. Azul discussed case with Dr. Maria who advised outpatient follow-up. Was smoking cessation discussed for >3mins.? @ -No Was critical care preformed (if so, how long)? @ -No Were there social determinants of health that impacted care today? How? (Homelessness, low income, unemployed, alcoholism, drug addiction, transportation, low edu. Level, literacy, decrease access to med. care, [facility], rehab)? @ -No Was there de-escalation of care discussed even if they declined (Discuss DNR or withdrawal of care, Hospice)? DNR status @ -No What co-morbidities impacted this encounter? (DM, HTN, Smoking, COPD, CAD, Cancer, CVA, ARF, Chemo, Hep., AIDS, mental health diagnosis, sleep apnea, morbid obesity)? @ -None Was patient admitted / discharged? Hospital course, mention meds given and route, prescriptions, significant lab abnormalities, going to OR and other pertinent info. @ -Discharge. Patient is a 63-year-old female presented to the ER with chief complaint of right leg swelling and bruising. Patient does report she had a fall on that leg. Patient sent here from urgent care for evaluation of DVT. History and physical exam completed. Vitals stable. Patient's right lower extremity neurovascular intact. Patient had active range of motion. There was significant ecchymosis and edema to right calf. Ultrasound positive for DVT extending from femoral to popliteal vein. Dr. Azul discussed case with Dr. Maria who advised outpatient follow-up. Patient received subcutaneous Lovenox prior to discharge. Starter pack of Eliquis sent to pharmacy. Advised her to follow-up with Dr. Maria in the next 1 to 2 days. Strict return parameters were discussed. Patient discharged stable condition with follow-up to PCP. Patient expressed understanding and agreement with care plan. Undiagnosed new problem with uncertain prognosis? @ -No Drug Therapy requiring intensive monitoring for toxicity (Heparin, Nitro, Insulin, Cardizem)? @ -No Were any procedures done? @ -No Diagnosis/symptom? @ -DVT Acute, or Chronic, or Acute on Chronic? @ -Acute Uncomplicated (without systemic symptoms) or Complicated (systemic symptoms)? @ -Uncomplicated Side effects of treatment? @ -No Exacerbation, Progression, or Severe Exacerbation? @ -No Poses a threat to life or bodily function? How? (Chest pain, [place], [place], pneumonia, PE, COPD, DKA, ARF, appy, cholecystitis, CVA, Diverticulitis, Homicidal, Suicidal, threat to staff... and all critical care pts) @ -Yes, DVT can lead to pulmonary embolism which is life-threatening. - Radiology Data Radiology results: report reviewed, image reviewed Disposition Clinical Impression: DVT (deep venous thrombosis) Disposition: HOME SELF-CARE Condition: Stable Instructions (If sedation given, give patient instructions): Deep Vein Thrombosis (ED) Additional Instructions: Please follow-up with PCP in the next 1 to 2 days. Return to the ER for any new or worsening symptoms. Prescriptions: Apixaban [Eliquis Starter Pack (for VTE)] 0 mg PO DIRECTED 30 Days #1 packet Is patient prescribed a controlled substance at d/c from ED?: No Referrals: Vick Maria MD [Primary Care Provider] - 1-2 days Time of Disposition: 16:26
[2023-04-08 14:46] VITALS: RESP 18
--- NOTE | 2023-04-08 15:05 | US ---
EXAMINATION TYPE: US venous doppler duplex LE RT DATE OF EXAM: 04/08/2023 2:47 PM COMPARISON: NONE CLINICAL INDICATION: Female, 63 years old with history of ecchymosis and swelling; Patient states she fell on her knee 03/29. Hx DVT in leg but doesn't remember which leg. Not on blood thinners. SIDE PERFORMED: Right TECHNIQUE: The lower extremity deep venous system is examined utilizing real time linear array sonog khanh with graded compression, doppler sonography and color-flow sonography. VESSELS IMAGED: Common Femoral Vein Deep Femoral Vein Greater Saphenous Vein * Femoral Vein Popliteal Vein Small Saphenous Vein * Proximal Calf Veins (* superficial vessels) Right Leg: Noncompressibility and reduced color flow identified within the right femoral and poplite al vein. The remainder the visualized vessels are patent and demonstrate appropriate color flow. Partially visualized left-sided veins demonstrate appropriate color Doppler flow within the left comm on femoral vein. IMPRESSION: Deep venous thrombosis involving the right femoral and popliteal vein. Findings were called to and discussed with ER provider Raciel on 04/08/[address] Franklin.
[2023-04-08] MEDS: ENOXAPARIN 40 MG/0.4 ML SYRINGE SQ STA ×2 (16:27→16:39)
[2023-04-08 16:54] VITALS: BP 136/81; PULSE 82; TEMP 98.1
== END 2023-04-08 16:50 | disposition home or self-care (01) ==
LOC: EC 13:05
DX: I82.411 Acute embolism and thrombosis of right femoral vein (principal); I82.431 Acute embolism and thrombosis of right popliteal vein; E78.5 Hyperlipidemia, unspecified; K21.9 Gastro-esophageal reflux disease without esophagitis; Z86.59 Personal history of other mental and behavioral disorders; Z87.891 Personal history of nicotine dependence; Z79.899 Other long term (current) drug therapy; Z88.2 Allergy status to sulfonamides; Z91.041 Radiographic dye allergy status
CPT/HCPCS: 93971; 99283; 96372; J1650

== ENCOUNTER → 2023-12-18 | Outpatient (CLI) | payer BC ==
--- NOTE | 2023-12-22 16:07 | MM ---
Reason for Exam: Screening (asymptomatic). Last mammogram was performed 3 year(s) and 1 month(s) ago. Patient History: Menarche at age 15. First Full-Term at age 18. Left ovary removed at age 43. Right ovary removed at age 43. Hysterectomy at age 43. Postmenopausal. Patient has history of breast feeding. Patient used Estrogen for 1 year. Maternal cousin had breast cancer. Maternal aunt had breast cancer. Risk Values: Keila 5 year model risk: 1.0%. NCI Lifetime model risk: 4.6%. Prior Study Comparison: 05/05/2005 Bilateral Screening Mammogram, [facility]. 01/03/2008 Bilateral Screening Mammogram, [facility]. 11/24/2020 Bilateral Screening Mammogram, [facility]. Tissue Density: There are scattered areas of fibroglandular density. Findings: Analyzed By CAD. The pattern is symmetrical. There is some scattered small nodules present. A couple of larger nodules are in the subareolar left breast. These were present in 2020. No suspicious groups of microcalcifications, spiculated or lobular masses, architectural distortion or other secondary signs of malignancy are mammographically apparent. Overall Assessment: Benign, BI-RAD 2 Management: Screening Mammogram of both breasts in 1 year. A negative mammogram report should not preclude additional follow up of suspicious palpable abnormalities. Patient should continue monthly self breast exam. A clinical breast exam by your physician is recommended on an annual basis and results should be correlated with mammographic findings. Note on Keila scores and lifetime risk: 1. A Keila score greater than 3% is considered moderate risk. If this is the case, consider specialist referral to assess eligibility for a risk reducing agent. 2. If overall lifetime risk for the development of breast cancer is 20% or higher, the patient may qualify for future screening with alternating mammogram and breast MRI. [facility], , 12/22/2023 4:04 PM. Electronically signed and approved by: Pedrito Ordoñez D.O. Radiologis
== END | disposition home or self-care (01) ==
LOC: RADMAMWWP 16:07
PROVIDERS: ATTEND Family Medicine
DX: Z12.31 Encounter for screening mammogram for malignant neoplasm of breast (principal); R92.323 Mammographic fibroglandular density, bilateral breasts; Z78.0 Asymptomatic menopausal state; Z80.3 Family history of malignant neoplasm of breast
CPT/HCPCS: 77067

== ENCOUNTER 2024-06-22 11:26 | Emergency (ER) | payer BC ==
[2024-06-22] MEDS: ONDANSETRON 4 MG/2 ML VIAL IVP STA (13:01)
[2024-06-22] MEDS: KETOROLAC 15 MG/ML 1 ML VIAL IVP STA (13:01)
[2024-06-22] MEDS: HYDROmorphone 0.5 MG/0.5 ML SYRINGE IVP STA (13:02)
[2024-06-22] MEDS: PIPERACILLIN-TAZOBACTAM 3.375 GM in SODIUM CHLORIDE 0.9% 100 ML IVPB STA (13:03)
[2024-06-22 13:21] LABS: Basophils # (A) 0.03 10*3/uL (0.00-0.10); Basophils % (A) 0.3 %; Eosinophils # (A) 0.05 10*3/uL (0.04-0.35); Eosinophils % (A) 0.6 %; HCT 41.9 % (37.2-46.3); HGB 13.8 g/dL (12.0-15.0); Lymphocytes # (A) 0.89 10*3/uL (0.90-5.00); MCH 29.7 pg (27.0-32.0); MCHC 32.9 g/dL (32.0-37.0); MCV 90.1 fL (80.0-97.0); Mean Platelet Volume 9.2 fL (9.5-12.2); Monocytes # (A) 0.72 10*3/uL (0.20-1.00); Monocytes % (A) 8.1 %; Neutrophils % (A) 80.6 %; Platelet Count 218 10*3/uL (140-440); RBC 4.65 10*6/uL (4.10-5.20); RDW 14.2 % (11.5-14.5); WBC 8.93 10*3/uL (4.50-10.00)
[2024-06-22 13:34] LABS: ALT 29 U/L (4-34); African American GFR (CKD) >90 (>60 ml/min/1.73 sqM); Albumin 4.3 g/dL (3.5-5.0); Anion Gap 9 mmol/L; Blood Urea Nitrogen 6 mg/dL (7-17); Calcium 9.8 mg/dL (8.4-10.2); Carbon Dioxide 27 mmol/L (22-30); Chloride 104 mmol/L (98-107); Glucose 94 mg/dL (74-99); Non-African American GFR(CKD) >90 (>60 ml/min/1.73 sqM); Sodium 140 mmol/L (137-145); Total Bilirubin 1.1 mg/dL (0.2-1.3); Total Protein 7.4 g/dL (6.3-8.2)
[2024-06-22 13:49] LABS: AST 46 U/L (14-36); Alkaline Phosphatase 76 U/L (38-126); Potassium 4.5 mmol/L (3.5-5.1)
--- NOTE | 2024-06-22 14:05 | ED ---
ENT HPI - General Chief complaint: Dental/Oral Stated complaint: Post op complications, right face swelling Time Seen by Provider: 06/22/24 11:56 Source: patient, family, RN notes reviewed Mode of arrival: ambulatory Limitations: no limitations - History of Present Illness Initial comments: 64-year-old female presents emergency department with complaint of right-sided facial pain and swelling. Patient states earlier last days patient had a recent dental procedure on the upper states this morning the lower aspect. Patient is concerned that she had sepsis from an infection at this. She denies any fevers or chills denies any neck pain or neck stiffness she states she has had no chest pain shortness of breath no abdominal complaints. Patient presented complaint - Related Data Home Medications Medication Instructions Recorded Confirmed Furosemide [Lasix] 20 mg PO DAILY 04/30/16 03/06/22 Pantoprazole [Protonix] 40 mg PO DAILY 04/30/16 03/06/22 Simvastatin [Zocor] 20 mg PO HS 04/30/16 03/06/22 Albuterol Inhaler [Ventolin Hfa 1 - 2 puff INHALATION RT-Q6H PRN 03/06/22 03/06/22 Inhaler] Chlorhexidine Gluconate [Peridex] 15 ml PO PC-BID 03/06/22 03/06/22 Cyclobenzaprine [Flexeril] 10 mg PO BID 03/06/22 03/06/22 Fluconazole [Diflucan] 100 mg PO DAILY 03/06/22 03/06/22 L.acidoph,Paracasei, B.lactis 1 cap PO DAILY 03/06/22 03/06/22 [Probiotic] Nystatin 1 applic TOPICAL BID 03/06/22 03/06/22 Previous Rx's Medication Instructions Recorded Ibuprofen [Motrin] 600 mg PO Q6HR PRN #40 tab 08/23/20 cefTRIAXone [Rocephin] 2,000 mg IVP Q24HR #42 each 03/08/22 metroNIDAZOLE [Flagyl] 500 mg PO TID #90 tab 03/08/22 Apixaban [Eliquis Starter Pack 0 mg PO DIRECTED 30 Days #1 04/08/23 (for VTE)] packet Amoxic-Pot Clav 875-125Mg 1 tab PO Q12HR #20 tab 06/22/24 [Augmentin 875-125] Ketorolac [Toradol] 10 mg PO Q8HR #15 tab 06/22/24 Allergies Allergy/AdvReac Type Severity Reaction Status Date / Time Iodinated Contrast Media Allergy Anaphylaxis Verified 06/22/24 11:46 [Iodinated Contrast Media - IV Dye] Sulfa (Sulfonamide Allergy Anaphylaxis Verified 06/22/24 11:46 Antibiotics) Review of Systems ROS Statement: Those systems with pertinent positive or pertinent negative responses have been documented in the HPI. ROS Other: All systems not noted in ROS Statement are negative. Past Medical History Past Medical History: GERD/Reflux, Hyperlipidemia, Hypertension Additional Past Medical History / Comment(s): lower leg edema History of Any Multi-Drug Resistant Organisms: None Reported Past Surgical History: Hernia Repair, Hysterectomy Additional Past Surgical History / Comment(s): D&C'S Past Anesthesia/Blood Transfusion Reactions: No Reported Reaction Past Psychological History: Anxiety, Panic Disorder Smoking Status: Former smoker Past Alcohol Use History: None Reported Past Drug Use History: None Reported - Past Family History Father Family Medical History: No Reported History Mother Family Medical History: Cancer Additional Family Medical History / Comment(s): OVARIAN General Exam Limitations: no limitations General appearance: alert, in no apparent distress Head exam: Present: atraumatic, normocephalic, normal inspection Eye exam: Present: normal appearance, PERRL, EOMI. Absent: scleral icterus, c onjunctival injection, periorbital swelling ENT exam: Present: mucous membranes moist, TM's normal bilaterally, normal external ear exam. Absent: normal oropharynx (Right mandibular swelling, no drainable abscess no trismus no difficulty swallowing) Neck exam: Present: normal inspection, full ROM. Absent: tenderness, meningismus, lymphadenopathy Respiratory exam: Present: normal lung sounds bilaterally. Absent: respiratory distress, wheezes, rales, rhonchi, stridor Cardiovascular Exam: Present: regular rate, normal rhythm, normal heart sounds. Absent: systolic murmur, diastolic murmur, rubs, gallop, clicks Course Vital Signs 06/22/24 11:43 Temperature 98.4 F Pulse Rate 100 Respiratory 16 Rate Blood Pressure 153/78 O2 Sat by Pulse 94 L Oximetry Medical Decision Making - Medical Decision Making Was pt. sent in by a medical professional or institution (, PA, TANKAGE GRINDER OPERATOR, urgent care, hospital, or long-term...) When possible be specific @ -No Did you speak to anyone other than the patient for history (EMS, parent, family, police, friend...)? What history was obtained from this source @ -No Did you review nursing and triage notes (agree or disagree)? Why? @ -I reviewed and agree with nursing and triage notes Were old charts reviewed (outside hosp., previous admission, EMS record, old EKG, old radiological studies, urgent care reports/EKG's, long-term records)? Report findings @ -No old charts were reviewed Differential Diagnosis (chest pain, altered mental status, abdominal pain women, abdominal pain men, vaginal bleeding, weakness, fever, dyspnea, syncope, headache, dizziness, GI bleed, back pain, seizure, CVA, palpatations, mental health, musculoskeletal)? @ -Dental infection dental abscess, toothache, this list is not all inclusive EKG interpreted by me (3pts min.). @ -None X-rays interpreted by me (1pt min.). @ -None done CT interpreted by me (1pt min.). @ -None done U/S interpreted by me (1pt. min.). @ -None done What testing was considered but not performed or refused? (CT, X-rays, U/S, labs)? Why? @ -None What meds were considered but not given or refused? Why? @ -None Did you discuss the management of the patient with other professionals (professionals i.e. , PA, TANKAGE GRINDER OPERATOR, lab, RT, psych nurse, manager social responsibility, public defender, teacher, financial compliance officer, returned case inspector)? Give summary @ -No Was smoking cessation discussed for >3mins.? @ -No Was critical care preformed (if so, how long)? @ -No Were there social determinants of health that impacted care today? How? (Homelessness, low income, unemployed, alcoholism, drug addiction, transportation, low edu. Level, literacy, decrease access to med. care, senior living, rehab)? @ -No Was there de-escalation of care discussed even if they declined (Discuss DNR or withdrawal of care, Hospice)? DNR status @ -No What co-morbidities impacted this encounter? (DM, HTN, Smoking, COPD, CAD, Cancer, CVA, ARF, Chemo, Hep., AIDS, mental health diagnosis, sleep apnea, morbid obesity)? @ -None Was patient admitted / discharged? Hospital course, mention meds given and route, prescriptions, significant lab abnormalities, going to OR and other pertinent info. @ -Discharge patient laboratory studies unremarkable. Patient was given Unasyn. Patient will be discharged on oral antibiotics. Patient will have close follow-up tomorrow and return parameters discussed Undiagnosed new problem with uncertain prognosis? @ -No Drug Therapy requiring intensive monitoring for toxicity (Heparin, Nitro, Insulin, Cardizem)? @ -No Were any procedures done? @ -No Diagnosis/symptom? @ -Dental infection Acute, or Chronic, or Acute on Chronic? @ -Acute Uncomplicated (without systemic symptoms) or Complicated (systemic symptoms)? @ -Complicated Side effects of treatment? @ -No Exacerbation, Progression, or Severe Exacerbation? @ -No Poses a threat to life or bodily function? How? (Chest pain, [place], [place], pneumonia, PE, COPD, DKA, ARF, appy, cholecystitis, CVA, Diverticulitis, Homicidal, Suicidal, threat to staff... and all critical care pts) @ -No - Lab Data Result diagrams: 06/22/24 12:54 06/22/24 12:54 Lab Results 06/22/24 06/22/24 06/22/24 Range/Units 12:54 12:54 12:54 WBC 8.93 (4.50-10.00) 10*3/uL RBC 4.65 (4.10-5.20) 10*6/uL Hgb 13.8 (12.0-15.0) g/dL Hct 41.9 (37.2-46.3) % MCV 90.1 (80.0-97.0) fL MCH 29.7 (27.0-32.0) pg MCHC 32.9 (32.0-37.0) g/dL Plt Count 218 (140-440) 10*3/uL MPV 9.2 L (9.5-12.2) fL Immature Gran % (Auto) 0.4 % Neutrophils % 80.6 % Lymphocytes % 10.0 % Monocytes % 8.1 % Eosinophils % 0.6 % Basophils % 0.3 % Immature Gran # 0.04 (0.00-0.04) 10*3/uL Neutrophils # 7.20 (1.80-7.70) 10*3/uL Lymphocytes # 0.89 L (0.90-5.00) 10*3/uL Monocytes # 0.72 (0.20-1.00) 10*3/uL Eosinophils # 0.05 (0.04-0.35) 10*3/uL Basophils # 0.03 (0.00-0.10) 10*3/uL Sodium 140 (137-145) mmol/L Potassium 4.5 (3.5-5.1) mmol/L Chloride 104 (98-107) mmol/L Carbon Dioxide 27 (22-30) mmol/L Anion Gap 9 mmol/L BUN 6 L (7-17) mg/dL Creatinine 0.47 L (0.52-1.04) mg/dL Est GFR (CKD-EPI)AfAm >90 (>60 ml/min/1.73 sqM) Est GFR (CKD-EPI)NonAf >90 (>60 ml/min/1.73 sqM) Glucose 94 (74-99) mg/dL Plasma Lactic Acid Manan 0.8 (0.7-2.0) mmol/L Calcium 9.8 (8.4-10.2) mg/dL Total Bilirubin 1.1 (0.2-1.3) mg/dL AST 46 H (14-36) U/L ALT 29 (4-34) U/L Alkaline Phosphatase 76 (38-126) U/L Total Protein 7.4 (6.3-8.2) g/dL Albumin 4.3 (3.5-5.0) g/dL Disposition Clinical Impression: Dental infection Disposition: HOME SELF-CARE Condition: Stable Instructions (If sedation given, give patient instructions): Toothache (ED) Additional Instructions: Please return to the Emergency Department if symptoms worsen or any other concerns. Prescriptions: Amoxic-Pot Clav 875-125Mg [Augmentin 875-125] 1 tab PO Q12HR #20 tab Ketorolac [Toradol] 10 mg PO Q8HR #15 tab Is patient prescribed a controlled substance at d/c from ED?: No Referrals: Vick Maria MD [Primary Care Provider] - 1-2 days Time of Disposition: 14:05
[2024-06-22] MEDS: ACET/COD 300 MG/30 MG STARTER PACK 6 TAB BTL PO STA (14:21)
[2024-06-22 14:29] VITALS: BP 112/68; PULSE 87; RESP 18; TEMP 97.8
== END 2024-06-22 14:29 | disposition home or self-care (01) ==
LOC: EC 11:26
DX: K04.7 Periapical abscess without sinus (principal); Z87.891 Personal history of nicotine dependence; Z88.2 Allergy status to sulfonamides; Z91.041 Radiographic dye allergy status
CPT/HCPCS: 36415; 80053; 83605; 85025; 87040; 99283; 96374; 96375 ×3; J2543; J2405; J1885; J1171